=== PATIENT | male | born 1990 | race Caucasian/White ===

== ENCOUNTER 2023-01-25 20:24 | Emergency (ER) | payer BC, SELFPAY ==
[2023-01-25 20:27] VITALS: BP 124/73; PULSE 57; RESP 18; TEMP 36.5; O2SAT 100; BMI 30.6
--- NOTE | 2023-01-25 21:57 | CT_ITS ---
STUDY: CT BRAIN WITHOUT CONTRAST REASON FOR EXAM: Male, 32 years old. Syncope RADIATION DOSAGE (If Supplied By Facility): CTDIvol = ( 44.99 ) mGy, DLP = ( 812.98 ) mGycm TECHNIQUE: Transaxial CT imaging of the brain was performed without administration of intravenous contrast material. Individualized dose optimization techniques were used for this CT. COMPARISON: No relevant priors. FINDINGS: Normal soft tissue structures. Normal calvarium. Normal size ventricles and extra-axial spaces for the patient''s age. Normal white matter tracts of the cerebral hemispheres. Normal basal ganglia and thalami. Normal brainstem. Normal cerebellum. There is no intracranial hemorrhage. There are no findings of an acute ischemic infarction. Normal visualized paranasal sinuses. CT/Brain/Head without Contrast IMPRESSION: Normal unenhanced CT scan of the brain. Electronically Signed: Adelso Gamble MD at 22:39 EDT ,
[2023-01-25 22:03] VITALS: BP 125/85; PULSE 64; RESP 17; O2SAT 99
[2023-01-25 22:06] LABS: Absolute Lymphocyte Count 4.26 X10^3/uL (0.83-4.51); Absolute Neutrophil Count 2.4 X10^3/uL (2.0-7.7); Basophil# 0.04 X10^3/uL; Basophil% 0.5 % (0-1); Eosinophil# 0.17 X10^3/uL; Eosinophils% 2.2 % (0-5); Hematocrit 43.1 % (40-54); Hemoglobin 14.3 g/dL (13.0-16.5); Lymphocyte # 4.26 X10^3/ul (0.83-4.51); Lymphocyte % 56.3 % (19-41); Mean Corp Hgb Conc 33.2 g/dL (32-36); Mean Corpuscular Hgb 27.4 pg (27.0-32.0); Mean Corpuscular Volume 82.6 fL (80-94); Mean Platelet Vol. 9.8 fl (6.2-12.0); Monocyte% 9.2 % (0-10); NRBC Flagged by Analyzer 0 % (0-5); Neutrophil # 2.38 X10^3/uL (2.7-7.7); Neutrophil % 31.5 % (47-70); Platelet Count 300 K/mm3 (150-450); RBC Distribution Width CV 13.4 % (11.6-14.6); RBC Distribution Width SD 40.3 fl (35.1-43.9); Red Blood Count 5.22 M/mm3 (4.6-6.2); White Blood Count 7.6 K/mm3 (4.4-11.0)
[2023-01-25 22:23] VITALS: BP 126/74; BP 132/81; BP 138/79; PULSE 73; PULSE 78; PULSE 98
[2023-01-25 22:27] LABS: Anion Gap 6 (5-15); BUN 14 mg/dL (7-18); BUN/Creat Ratio 9.6 RATIO (10-20); Chloride 109 mmol/L (98-107); Creatinine, Serum 1.46 mg/dL (0.70-1.30); EST Glomerular Filtration Rate 60 mL/min (>60); Est Glom Filt Rate - Afr Amer 72 mL/min (>60); Estimated Creatinine Clearance 78.08 ml/min; Glucose 132 mg/dL (74-106); Potassium 3.9 mmol/L (3.5-5.1); Sodium Level 139 mmol/L (136-145); Troponin-I HS (w/2H Reflex) < 3 pg/mL (3.0-78.0)
--- NOTE | 2023-01-25 23:23 | EX.ED.DYSGE1 ---
HPI History of Present Illness Chief Complaint: Syncope Informant: patient and spouse/S.O. Onset/Context/Timing Onset: Today Context: Sudden Onset Timing: Intermittent and Lasts (5 to 15 seconds) Quality: Syncope Location: Generalized Worsened by: Nothing Relieved by: Nothing Narrative Narrative: Patient presents with a syncopal episode that occurred tonight. Patient actually had 3 syncopal episodes tonight while he was eating dinner. Patient states he was not eating anything unusual or anything that he has never had before. states that the patient had 1 episode where he could not lift his arms and his arms were weak and he started to fall forward. states that the second episode patient clenched his fist and started to lean backwards. states that the third episode he also clenched his fists and fell towards the right side. Patient was seated with all of these episodes. states the first 1 lasted a few seconds. states that the second and third episodes lasted 10 to 15 seconds. Patient felt sweaty prior to the first episode. Patient denies any chest pain or palpitations. Patient states that he had some syncopal episodes several years ago and was diagnosed with vasovagal syncope. Patient states that these episodes felt different. Patient states that he did start CBD Gummies recently [facility] Medical History (Updated 01/25/23 @ 23:[address] Ephraim Zamora DO) Vasovagal episode Home Medications NK 01/25/23 [History Last Taken Unknown] Allergy/AdvReac Type Severity Reaction Status Date / Time Penicillins Allergy Severe Hives Verified 01/25/23 20:30 Family History no significant family his Surgical History (Updated 01/25/23 @ 23:[address] Ephraim Zamora DO) Hx of tonsillectomy Social History Smoking Status: Never smoker ROS ROS ED Constitutional Constitutional ED: Reports sweats; Denies chills or fever(s) Eyes Eyes: Denies blurry vision or change in vision ENT ENT ED: Denies rhinorrhea or sore throat Cardiovascular Cardiovascular: Denies chest pain or palpitations Respiratory/Chest Respiratory/Chest: Denies cough or dyspnea Gastrointestinal Gastrointestinal: Denies nausea or vomiting Genitourinary Genitourinary ED: Denies dysuria or hematuria Musculoskeletal Musculoskeletal: Denies back pain or neck pain Integumentary Denies abscess or rash Neurologic Neurologic: Reports weakness; Denies headache(s) Allergic/Immunologic Allergic/Immunologic ED: Denies mouth swelling or urticaria EXAM Physical Exam Const Vital Signs: 01/25/23 20:27 01/25/23 20:32 01/25/23 22:03 Temperature 97.7 F L Temperature Source Temporal Pulse Rate 57 L 64 Pulse Rate [Lying] Pulse Rate [Sitting (for 1 minute prior to obtaining)] Pulse Rate [Standing (for 1 minute prior to obtaining)] Respiratory Rate 18 17 Respiratory Effort Normal Respiratory Pattern Normal Blood Pressure 124/73 H 125/85 H Blood Pressure [Lying] Blood Pressure [Sitting (for 1 minute prior to obtaining)] Blood Pressure [Standing (for 1 minute prior to obtaining)] Blood Pressure Mean 90 98 Blood Pressure Mean [Lying] Blood Pressure Mean [Sitting (for 1 minute prior to obtaining)] Blood Pressure Mean [Standing (for 1 minute prior to obtaining)] Pulse Ox 100 99 Oxygen Delivery Method Room Air Room Air 01/25/23 22:23 Temperature Temperature Source Pulse Rate Pulse Rate [Lying] 73 Pulse Rate [Sitting (for 1 minute prior to obtaining)] 78 Pulse Rate [Standing (for 1 minute prior to obtaining)] 98 Respiratory Rate Respiratory Effort Respiratory Pattern Blood Pressure Blood Pressure [Lying] 126/74 H Blood Pressure [Sitting (for 1 minute prior to obtaining)] 138/79 H Blood Pressure [Standing (for 1 minute prior to obtaining)] 132/81 H Blood Pressure Mean Blood Pressure Mean [Lying] 91 Blood Pressure Mean [Sitting (for 1 minute prior to obtaining)] 98 Blood Pressure Mean [Standing (for 1 minute prior to obtaining)] 98 Pulse Ox Oxygen Delivery Method Positive well nourished and well developed General Appearance ED: well developed HEENT Reports moist mucous membranes Neck supple and no JVD Resp normal respiratory effort and clear to auscultation bilaterally Cardio regular rate, regular rhythm and no murmurs GI normal to inspection, nondistended, normoactive bowel sounds and non-tender Palpation: soft Extremity normal to inspection General Extremety ED: Negative for edema or tenderness General Extremity: Negative for edema Neuro oriented x3, CN's II-XII intact bilaterally and no sensory deficits noted Sensorium / Orientation: alert Motor Exam: strength 5/5 throughout Psych mental status grossly normal Skin no rashes or lesions noted MDM MDM MDM Narrative Medical decision making narrative: Differential diagnosis includes cardiac dysrhythmia, cardiac ischemia, TIA, seizure, syncope, vasovagal episode, and anxiety. EKG will be obtained to assess for cardiac dysrhythmia and cardiac ischemia. CT scan of the brain will be obtained to assess for intracranial bleeding and mass. CBC will be obtained to assess for leukocytosis and anemia. Basic metabolic profile will be obtained to assess for electrolyte abnormality and renal function. High-sensitivity troponin will be obtained to assess for cardiac ischemia. 2-hour repeat high-sensitivity troponin will be obtained to assess for ongoing cardiac ischemia. Orthostatic vital signs will be obtained to assess for hypovolemia and dehydration. History & Record Review Discussion w/independent historian: Patient and Family Lab Data Attestation: I reviewed the patient's lab results. Lab results narrative: CBC was reviewed and was within normal limits. Basic metabolic profile was reviewed. Creatinine was slightly elevated at 1.46. Glucose was slightly elevated 132. High-sensitivity troponin was reviewed and was less than 3. Labs: Laboratory Results - last 24 hr 01/25/23 20:49 WBC 7.6 RBC 5.22 Hgb 14.3 Hct 43.1 MCV 82.6 MCH 27.4 MCHC 33.2 RDW Std Deviation 40.3 RDW Coeff of Sean 13.4 Plt Count 300 MPV 9.8 Immature Gran % (Auto) 0.300 Neut % (Auto) 31.5 L Lymph % (Auto) 56.3 H Bartholomew % (Auto) 9.2 Eos % (Auto) 2.2 Baso % (Auto) 0.5 Absolute Neuts (auto) 2.4 Absolute Lymphs (auto) 4.26 Nucleated RBC % 0 Sodium 139 Potassium 3.9 Chloride 109 H Carbon Dioxide 24.0 Anion Gap 6 BUN 14 Creatinine 1.46 H Estim Creat Clear Calc 78.08 Est GFR (MDRD) Af Amer 72 Est GFR (MDRD) Non-Af 60 BUN/Creatinine Ratio 9.6 L Glucose 132 H Calcium 9.0 Troponin I High Sens < 3 L Radiography Diagnostic Testing: Clinical Impression(s) from Imaging Studies Brain CT 01/25/23 21:57 IMPRESSION: Normal unenhanced CT scan of the brain. Electronically Signed: Adelso Gamble MD at 22:39 EDT , CT scan of the brain was obtained. There is no acute intracranial abnormality. This was interpreted by the radiologist and was also independently reviewed by myself. EKG Initial EKG: Attestation: I personally reviewed and interpreted this EKG as follows: Interpretation: Sinus Rhythm (62) and No Acute Injury Pattern Comments: EKG was obtained. On my independent interpretation, it showed a normal sinus rhythm with a rate of 62. OR interval, QRS interval, and QTc intervals were all normal. [place] was normal. There are no acute ST or T wave changes. Prior EKG tracings: not available for review Prior: No Prior Treatment and Re-Evaluation :: Orthostatic vital signs were obtained. Patient's heart rate did increase by 20 from sitting to standing. Because of this, patient was given IV fluids. Patient was advised of his findings. A 2-hour repeat troponin is ordered and is pending. Patient was advised that if this is normal he will be discharged home and he will follow-up with his primary care physician for further evaluation of his syncope. Patient was directed to stop using the CBD Gummies in case this has been contributing to the syncope episodes tonight. Patient understood and was agreeable with the plan. All questions were answered. The was turned over to the evening physician pending delta troponin result. Discharge Plan Triage Chief Complaint: Syncope ED Provider: Ephraim Zamora Dx/Rx/DC Orders Clinical Impression: Syncope and collapse Instructions: ED Fainting, Uncertain Cause Prescriptions: No Action NK Primary Care Provider: Care Physician,No Primary Referrals: Humza Lacy MD [Med Staff - [employer]] - 5-7 Days Care Physician,No Primary [Primary Care Provider] -
[2023-01-25] MEDS: 0.9% Normal Saline 1,000 ML 1000 ML IV (23:47)
[2023-01-26 00:03] LABS: Reflex Troponin-HS? (from REC) Y
[2023-01-26 00:31] LABS: Troponin-I HS 4 pg/mL (3.0-78.0)
[2023-01-26 01:01] VITALS: BP 119/73; PULSE 69; RESP 23; O2SAT 99
== END 2023-01-26 01:07 | disposition home or self-care (01) ==
LOC: ED 22:09
PROVIDERS: Emergency Provider Emergency Medicine; Visit Provider Emergency Medicine
DX: R55 Syncope and collapse (principal)
CPT/HCPCS: 70450; 80048; 84484; 85025; 93005; 96360; 99285; J7030; A4216

== ENCOUNTER 2025-01-01 14:56 | Observation (INO) | payer BC, SELFPAY ==
[2025-01-01 14:56] VITALS: BP 143/85; PULSE 64; RESP 14; TEMP 36.7; O2SAT 98
--- NOTE | 2025-01-01 15:52 | ED.VIS.GI ---
HPI HPI - GI History of Present Illness Chief Complaint: Abd Pain Abdominal Pain/Flank Pain Onset: Yesterday Context: Sudden Onset Timing: Continuous Quality: Aching and - (Throbbing) Location: RUQ Worsened by: Food Relieved by: - (Aspirin) Nausea/Vomiting/Emesis GI Symptom: Positive for Nausea and Vomiting Onset: Yesterday Quality: Positive for Nonbilious; Negative for Blood streaks, Coffee ground or Hematemesis Diarrhea/Melena/Hematochezia GI Symptom: Negative for Diarrhea, Melena or Hematochezia Associated Symptoms Associated Symptoms: Negative for Dysuria, Frequency or Hematuria Narrative Narrative: Patient presents with right upper quadrant abdominal pain that began last night. Patient states it began approximately 2 hours after eating dinner last night. Patient describes it as aching and throbbing. Patient states it radiates around to his back. Patient states he has been taking aspirin which has been helping. Patient admits to some nausea and vomiting. Patient denies any hematemesis or coffee-ground emesis. Patient denies any diarrhea, melena, or hematochezia. Patient denies any dysuria, frequency, or hematuria. [facility] Medical History Vasovagal episode Home Medications ?Medication ?Instructions ?Recorded ?Last Taken ?Type NK 01/25/23 Unknown History Allergy/AdvReac Type Severity Reaction Status Date / Time Penicillins Allergy Severe Hives Verified 01/01/25 14:57 Surgical History Hx of tonsillectomy Social History Smoking Status: Never smoker ROS ROS ED Constitutional Constitutional ED: Denies chills or fever(s) Eyes Eyes: Denies blurry vision or change in vision ENT ENT ED: Denies rhinorrhea or sore throat Cardiovascular Cardiovascular: Denies chest pain or palpitations Respiratory/Chest Respiratory/Chest: Denies cough or dyspnea Gastrointestinal Gastrointestinal: Reports abdominal pain, nausea and vomiting; Denies diarrhea Genitourinary Genitourinary ED: Denies dysuria or hematuria Musculoskeletal Musculoskeletal: Reports back pain; Denies neck pain Integumentary Denies abscess or rash Neurologic Neurologic: Denies headache(s) or weakness Allergic/Immunologic Allergic/Immunologic ED: Denies mouth swelling or urticaria EXAM Physical Exam Const Vital Signs: 01/01/25 14:56 01/01/25 16:56 01/01/25 18:00 Temperature 98.1 F 98.4 F Temperature Source Temporal Pulse Rate 64 68 71 Respiratory Rate 14 18 18 Blood Pressure 143/85 H 136/82 H 134/82 H Blood Pressure Mean 104 100 99 Pulse Ox 98 100 99 Oxygen Delivery Method Room Air Room Air Positive well nourished and well developed General Appearance ED: well developed and NAD HEENT Reports moist mucous membranes Neck supple and no JVD Resp normal respiratory effort and clear to auscultation bilaterally Cardio regular rate and regular rhythm GI non-distended Palpation: soft and tender RUQ and Curtis's sign; Negative for guarding or rebound tenderness present Neuro CN's II-XII intact bilaterally, moves all extremities and no sensory deficits noted Sensorium / Orientation: alert Motor Exam: strength 5/5 throughout Psych mental status grossly normal MDM MDM MDM Narrative Medical decision making narrative: Differential diagnosis includes cholecystitis, cholelithiasis, pancreatitis, gastritis, peptic ulcer disease, duodenal ulcer, urinary tract infection, and ureteral calculus. CBC will be obtained to assess for leukocytosis and anemia. Comprehensive metabolic profile will be obtained to assess for electrolyte abnormality and renal function. Lipase will be obtained to assess for pancreatitis. Urinalysis will be obtained to assess for urinary tract infection and hematuria. Right upper quadrant ultrasound will be obtained to assess for cholecystitis and cholelithiasis. History & Record Review Discussion w/independent historian: Patient Additional record(s) reviewed:: Prior labs Lab Data Attestation: I reviewed the patient's lab results. Lab results narrative: CBC was reviewed. There is a mild leukocytosis of 12.8. The remainder is within normal limits. Comprehensive metabolic profile was reviewed. Glucose was 100. The remainder is within normal limits. Lipase was reviewed and was normal at 24. Urinalysis was reviewed. There is no evidence of urinary tract infection or hematuria. Labs: Laboratory Results - last 24 hr 01/01/25 01/01/25 16:07 16:15 WBC 12.8 H RBC 5.30 Hgb 14.9 Hct 41.7 MCV 78.7 L MCH 28.1 MCHC 35.7 RDW Std Deviation 37.1 RDW Coeff of Sean 13.0 Plt Count 280 MPV 9.5 Immature Gran % (Auto) 0.200 Neut % (Auto) 76.6 H Lymph % (Auto) 15.7 L [place] % (Auto) 7.0 Eos % (Auto) 0.2 Baso % (Auto) 0.3 Absolute Neuts (auto) 9.8 H Absolute Lymphs (auto) 2.01 Nucleated RBC % 0 Sodium 136 Potassium 3.7 Chloride 101 Carbon Dioxide 22.6 Anion Gap 13 BUN 12 Creatinine 1.14 Estim Creat Clear Calc 110.23 Est GFR (MDRD) Non-Af 87 BUN/Creatinine Ratio 10.9 Glucose 100 H Calcium 9.9 Total Bilirubin 1.16 AST 20 ALT 27 Alkaline Phosphatase 69 Total Protein 8.0 Albumin 4.7 Globulin 3.3 Albumin/Globulin Ratio 1.4 Lipase 24 Urine Color Straw Urine Clarity Clear Urine pH 7.0 Ur Specific [place] 1.005 Urine Protein Negative Urine Glucose (UA) Normal Urine Ketones 5 H Urine Occult Blood Negative Urine Nitrite Negative Urine Bilirubin Negative Urine Urobilinogen Normal Ur Leukocyte Esterase Negative Urine RBC 0 SEEN Urine WBC 0 SEEN Ur Squamous Epith Cells 0 SEEN Urine Bacteria 0 SEEN Urine Mucus 0 SEEN Radiography Diagnostic Testing: Clinical Impression(s) from Imaging Studies Gallbladder Ultrasound 01/01/25 15:56 IMPRESSION: 1. Cholelithiasis and biliary sludge, with equivocal findings for acute cholecystitis. Consider Surgical consultation and nuclear medicine scan if there is heightened clinical concern. 2. Mild hepatomegaly. Reading Location: [facility] Right upper quadrant ultrasound was obtained. There is cholelithiasis and biliary sludge. There is no gallbladder wall thickening. There is possible trace pericholecystic fluid. There is negative sonographic Curtis sign. This was interpreted by the radiologist and was also independently reviewed by myself. Management Discussion w/another healthcare provider: Roving Technician Treatment and Re-Evaluation :: Patient was given morphine and Zofran. Patient was given IV fluids. Case was discussed with Dr. Guajardo from general surgery. He will admit the patient to his service. Patient understood and was agreeable with the plan. All questions were answered. Discharge Plan Triage Chief Complaint: Abd Pain ED Provider: Ephraim Zamora Dx/Rx/DC Orders Clinical Impression: Acute cholecystitis, Leukocytosis, Abdominal pain, acute, right upper quadrant Primary Care Provider: Care Physician,No Primary Disposition Disposition: Acute Care Hospital [facility]
--- NOTE | 2025-01-01 15:56 | US_ITS ---
PROCEDURE: GALLBLADDER 01/01/2025 REASON FOR EXAM: PAIN COMPARISON: None FINDINGS: Liver: Mildly enlarged measuring 19.1 cm longitudinally. Isoechoic to the right kidney. Gallbladder: There are echogenic shadowing stones and layering sludge, with normal wall thickness of 2 mm. There are tiny avascular anechoic spaces within a hyperechoic background adjacent to the gallbladder, possibly trace pericholecystic fluid or adenomyomatosis. Sonographic Curtis's sign is negative per technologist report. Common bile duct: Normal measuring 3 mm. Pancreas: Visualized portions are sonographically unremarkable. Other: Visualized portions of the right kidney are unremarkable, with the right kidney measuring 10.7 x 4.8 x 4.9 cm and with cortex measuring 1.1 cm. No right upper quadrant ascites. US/Gallbladder IMPRESSION: 1. Cholelithiasis and biliary sludge, with equivocal findings for acute cholec ystitis. Consider Surgical consultation and nuclear medicine scan if there is heightened clinical concern. 2. Mild hepatomegaly. Reading Location: [id number]
[2025-01-01 16:12] VITALS: BMI 28.4
[2025-01-01] MEDS: 0.9% Normal Saline (1000mL) 1,000 ML 999 ML IV (16:14)
[2025-01-01 16:27] LABS: Bacteria 0 SEEN /hpf (None Seen); Mucous, Urine 0 SEEN /hpf (<or=2+); Red Blood Cells-Urine 0 SEEN /hpf (0-5); Squamous Epithelial Cells - UA 0 SEEN /hpf (0-5); White Blood Cells 0 SEEN /hpf (0-5)
[2025-01-01 16:33] LABS: Absolute Lymphocyte Count 2.01 X10^3/uL (0.83-4.51); Absolute Neutrophil Count 9.8 X10^3/uL (2.0-7.7); Basophil# 0.04 X10^3/uL; Basophil% 0.3 % (0-1); Eosinophil# 0.03 X10^3/uL; Eosinophils% 0.2 % (0-5); Hematocrit 41.7 % (40-54); Hemoglobin 14.9 g/dL (13.0-16.5); Lymphocyte # 2.01 X10^3/ul (0.83-4.51); Lymphocyte % 15.7 % (19-41); Mean Corp Hgb Conc 35.7 g/dL (32-36); Mean Corpuscular Hgb 28.1 pg (27.0-32.0); Mean Corpuscular Volume 78.7 fL (80-94); Mean Platelet Vol. 9.5 fl (6.2-12.0); Monocyte# 0.89 X10^3/uL; NRBC Flagged by Analyzer 0 % (0-5); Neutrophil # 9.78 X10^3/uL (2.7-7.7); Neutrophil % 76.6 % (47-70); Platelet Count 280 K/mm3 (150-450); RBC Distribution Width SD 37.1 fl (35.1-43.9); White Blood Count 12.8 K/mm3 (4.4-11.0)
[2025-01-01 16:39] LABS: Glucose, Dipstick Normal (Normal); Ketone-Dipstick 5 mg/dl (Negative); Leukocyte Esterase-Dipstick Negative /ul (Negative); Nitrite-Dipstick Negative (Negative); Occult Blood-Urine Negative /ul (Negative); Protein-Dipstick Negative (Negative); Specific Gravity, Urine 1.005 (1.002-1.030); Urine Bilirubin Dipstick Negative (Negative); Urine Urobilinogen Normal (Normal)
[2025-01-01 16:48] LABS: ALB/GLOB Ratio 1.4 RATIO (0.9-2.4); AST(SGOT) 20 U/L (<=37); Alanine Aminotransfer ALT/SGPT 27 U/L (<=46); Albumin, Serum 4.7 g/dL (3.5-5.0); Alkaline Phosphatase 69 U/L (40-129); Anion Gap 13 (5-15); BUN 12 mg/dL (4-19); BUN/Creat Ratio 10.9 RATIO (10-20); Calcium,Total 9.9 mg/dL (7.6-11.0); Carbon Dioxide 22.6 mmol/L (21.0-32.0); Chloride 101 mmol/L (98-108); Creatinine, Serum 1.14 mg/dL (0.70-1.20); EST Glomerular Filtration Rate 87 (>60); Estimated Creatinine Clearance 110.23 ml/min (50-250); Globulin 3.3 g/dL (2.2-4.2); Glucose 100 mg/dL (70-99); Lipase 24 U/L (13-75); Potassium 3.7 mmol/L (3.3-5.1); Sodium Level 136 mmol/L (133-145); Total Bilirubin 1.16 mg/dL (0.00-1.30)
[2025-01-01 16:50] LABS: Color, Urine Straw (Yellow); Urine Clarity Clear (Clear)
[2025-01-01 16:56] VITALS: BP 136/82; PULSE 68; RESP 18; O2SAT 100
[2025-01-01 18:00] VITALS: BP 134/82; PULSE 71; RESP 18; TEMP 36.9; O2SAT 99
--- NOTE | 2025-01-01 18:07 | PCM.HP.STD ---
HPI - General HPI Narrative VICKI MATTHEWS, is a 34 M who presents with right upper quadrant pain that started last night. The patient denies nausea or vomiting. He denies fevers or chills. He says the pain is in his right upper quadrant. Patient says the pain radiates to the back. [facility] Medical History Vasovagal episode Home Medications ?Medication ?Instructions ?Recorded ?Last Taken ?Type NK 01/25/23 Unknown History Allergy/AdvReac Type Severity Reaction Status Date / Time Penicillins Allergy Severe Hives Verified 01/01/25 14:57 Surgical History Hx of tonsillectomy Social History Smoking Status: Never smoker ROS Constitutional Constitutional: Denies anorexia, chills, fatigue or fever(s) Eyes Eyes: Denies blurry vision ENT HEENT: Denies abnormal hearing Cardiovascular Cardiovascular: Denies chest pain Respiratory/Chest Respiratory/Chest: Denies cough or dyspnea Gastrointestinal Gastrointestinal: Reports abdominal pain; Denies diarrhea, nausea or vomiting Genitourinary Genitourinary: Denies difficulty urinating Musculoskeletal Musculoskeletal: Denies abnormal gait Integumentary Integumentary: Denies jaundice or new lesions Neurologic Neurologic: Denies abnormal gait Psychiatric Psychiatric: Denies anxiety Vital Signs Vital Signs Vital Signs: 01/01/25 14:56 01/01/25 16:56 Temperature 98.1 F Temperature Source Temporal Pulse Rate 64 68 Respiratory Rate 14 18 Blood Pressure 143/85 H 136/82 H Blood Pressure Mean 104 100 Pulse Ox 98 100 Oxygen Delivery Method Room Air Room Air Weight Weight: 209 lb 7.026 oz Body Mass Index (BMI) 28.4 Physical Exam Const oriented x3 and no apparent distress Resp normal respiratory effort GI soft to palpation Palpation: tender RUQ Extremity normal to inspection Results Lab / Micro Data 01/01/25 16:15 01/01/25 16:15 Labs: Laboratory Results - last 24 hr 01/01/25 16:07: Urine Color Straw, Urine Clarity Clear, Urine pH 7.0, Ur Specific [place] 1.005, Urine Protein Negative, Urine Glucose (UA) Normal, Urine Ketones 5 H, Urine Occult Blood Negative, Urine Nitrite Negative, Urine Bilirubin Negative, Urine Urobilinogen Normal, Ur Leukocyte Esterase Negative, Urine RBC 0 SEEN, Urine WBC 0 SEEN, Ur Squamous Epith Cells 0 SEEN, Urine Bacteria 0 SEEN, Urine Mucus 0 SEEN 01/01/25 16:15: WBC 12.8 H, RBC 5.30, Hgb 14.9, Hct 41.7, MCV 78.7 L, MCH 28.1, MCHC 35.7, RDW Std Deviation 37.1, RDW Coeff of Sean 13.0, Plt Count 280, MPV 9.5, Immature Gran % (Auto) 0.200, Neut % (Auto) 76.6 H, Lymph % (Auto) 15.7 L, [place] % (Auto) 7.0, Eos % (Auto) 0.2, Baso % (Auto) 0.3, Absolute Neuts (auto) 9.8 H, Absolute Lymphs (auto) 2.01, Nucleated RBC % 0, Sodium 136, Potassium 3.7, Chloride 101, Carbon Dioxide 22.6, Anion Gap 13, BUN 12, Creatinine 1.14, Estim Creat Clear Calc 110.23, Est GFR (MDRD) Non-Af 87, BUN/Creatinine Ratio 10.9, Glucose 100 H, Calcium 9.9, Total Bilirubin 1.16, AST 20, ALT 27, Alkaline Phosphatase 69, Total Protein 8.0, Albumin 4.7, Globulin 3.3, Albumin/Globulin Ratio 1.4, Lipase 24 Imaging Radiology Impression Gallbladder Ultrasound 01/01/25 15:56 IMPRESSION: 1. Cholelithiasis and biliary sludge, with equivocal findings for acute cholecystitis. Consider Surgical consultation and nuclear medicine scan if there is heightened clinical concern. 2. Mild hepatomegaly. Reading Location: [id number] Assessment & Plan Assessment/Plan (1) Acute cholecystitis: PLAN: The patient has sludge and stones in his gallbladder with elevated white count. This is consistent with acute cholecystitis. Plan to admit him on antibiotics and take him for laparoscopic cholecystectomy tomorrow. I discussed the procedure in detail with the patient. I discussed the risks, benefits, and alternatives of the procedure. I discussed the risks including but not limited to bleeding, infection, injury to surrounding organs such as the liver, bile duct, bowels. I did discuss the possibility of having to convert to an open procedure as well as the possibility that if any injuries occurred this may necessitate further surgery at a tertiary care center. Shiraz Guajardo MD Pager: [facility] [address] [place] [address] [address] [place] [address] Office:
[2025-01-01 19:59] VITALS: BMI 29.2
[2025-01-01] MEDS: Acetaminophen 325 MG Tablet 650 MG PO (20:37)
[2025-01-01] MEDS: 0.9% Normal Saline (1000mL) 1,000 ML 60 ML IV (20:37)
[2025-01-01] MEDS: Ciprofloxacin 400 MG/200 ML BAG 200 MG IV (20:37)
[2025-01-01 20:43] VITALS: BP 135/84; PULSE 84; RESP 16; TEMP 36.9; O2SAT 100
--- OUTSIDE RECORDS SUMMARY | 2025-01-01 23:11 | XMS RPT_ITS | CCD ---
Author Organization [facility] Inform ion Partnership [facility] Care Team Providers Care Intake Assessor Name Role Phone Ephraim Zamora Attending Unavailable Care Physician, No Primary Primary Care Unava ilable Unavailable Primary Care Provider UnavailGABO Rodriguez Attending Unavailable RUI ZAMBRANO Referring Unavailable DAYAN BECERRA Attending Unavailable RUI ZAMBRANO Referring Unavailable STARR MURILLO [facility], No Primary Primary Care Provider Unavailable Dr. Ephraim Zamora DO Referring Provider Dr. Ephraim Zamora DO Emergency Provider [phone] Bennett ROSS, Dr. Mullins Admit Provider [phone] Dr. Shiraz Guajardo MD Attending Provider Allergies Allergy Classification Reported Allergen(s) Allergy Type Date of Onset Reaction(s) Facility (3 sources) Penicillins; Translations: [PENICILLINS] Drug allergy (disorder) 11-28-2013 [facility] Repository (8 sources) Penicillins Drug Allergy 11-28-2013 Rash [facility] Work Phone: (1 source) Penicillins Allergy to substance 01-01-2025 [facility] Medications Current Medications Medication Drug Class(es) Dates Sig (Normalized) Sig (Original) ciprofloxacin 500 mg oral tablet (4 sources) Quinolone Antimicrobial Start: 02-07-2024 take 1 tablet by mouth every hour ciprofloxacin HCl (CIPRO) 500 mg tablet Indications: Vasectomy evaluation 1 PO Q- 24, 12 AND 1 HOUR PRIOR TO PROCEDURE 3 tablet 02/07/2024 Active MULTI-VITAMIN ORAL (7 sources) take 1 tablet by mouth once daily MULTI-VITAMIN ORAL Take 1 tablet by mouth once daily. Active take 1 tablet by mouth once linda y MULTI-VITAMIN ORAL Take 1 tablet by mouth once daily. 0 Active triazolam 0.25 mg oral tablet (3 sources) Benzodiazepine Start: 02-07-2024 End: 03-13-2024 triazolam (HALCION) 0.25 mg tablet Indications: Vasectomy evaluation 1 PO Q-1 hour prior to procedure 2 tablet 0 02/07/2024 03/13/2024 Active Completed/Discontinued Medications Medication Drug Class(es) Dates Sig (Normalized) Sig (Original) Lidocaine (2 sources) Antiarrhythmic, Amide Local Anesthetic Start: 02-10-2024 End: 02-10-2024 lidocaine 20 mg/mL (2 %) 200 mg injection (XYLOCAINE) Problems Active Problems Problem Classification Problem Date Documented Da te Episodic/Chronic Abdominal pain (2 sources) Acute abdominal pain; Translations: [Right upper quadrant pain] 01-01-2025 Episodic Biliary tract disease (2 sources) Acute cholecystitis; Translations: [Acute cholecystitis] 01-01-2025 Episodic Contraceptive and procreative management (7 sources) Patient encounter status; Translations: [Encounter for other general counseling and advice on contraception] Onset: 02-10-2024 01-11-2024 Episodic Diseases of white blood cells (2 sources) Leukocytosis; Translations: [Elevated white blood cell count, unspecified] 01-01-2025 Chronic Other non-traumatic joint disorders (1 source) Acute ankle pain; Translations: [Pain in right ankle and joints of right foot] 07-19-2023 Episodic Syncope (1 source) Syncope and collapse; Translations: [Syncope and collapse] 02-03-2023 Episodic Past or Other Problems Problem Classification Problem Date Documented Da te Episodic/Chronic Other non-traumatic joint disorders (1 source) Pain in right ankle and joints of right foot; Translations: [Acute right ankle pain] Onset: 08-09-2023 Episodic Results Test Name Value Interpretation Reference Range Facility Absolute lymphocyte countOrd ered By: Ephraim Zamora on 01-01-2025 Lymphocytes Auto (Unsp spec) [#/Vol] 2.01 10*3/uL 0.83-4.51 [facility] Absolute neutrophil countOrd ered By: Ephraim Zamora on 01-01-2025 Neutrophils (Bld) [#/Vol] 9.8 10*3/uL High 2.0-7.7 [facility] Anion gap in Serum or Plasma Ordered By: Ephraim Zamora on 01-01-2025 Anion gap [Moles/Vol] 13 mmol/L 5-15 [facility] Automated lymphocyte count a s percentage of total leukocytesOrdered By: Ephraim Zamora on 01-01-2025 Lymphocytes/100 WBC Auto (Unsp spec) 15.7 % Low 19-41 [facility] BUN/creatinine ratioOrdered By: Ephraim Zamora on 01-01-2025 Urea nitrogen/Creatinine [Mass ratio] 10.9 mg/mg 10-20 [facility] Basophil percentageOrdered B y: Ephraim Zamora on 01-01-2025 Basophils/100 WBC (Bld) 0.3 % 0-1 [facility] Bilirubin Test strip Ql (U)O rdered By: Ephraim Zamora on 01-01-2025 Bilirubin Ql (U) Negative Negative [facility] Bilirubin, totalOrdered By: Ephraim Zamora on 01-01-2025 Bilirubin [Mass/Vol] 1.16 mg/dL 0.00-1.30 [facility] Carbon dioxide, total [Moles /volume] in Central venous bloodOrdered By: Ephraim Zamora on 01-01-2025 CO2 [Moles/Vol] 22.6 mmol/L 21.0-32.0 [facility] Chloride assayOrdered By: Hermilo Zamora on 01-01-2025 Chloride [Moles/Vol] 101 mmol/L 98-108 [facility] Eosinophil percentageOrdered By: Ephraim Zamora on 01-01-2025 Eosinophils/100 WBC (Bld) 0.2 % 0-5 [facility] Erythrocyte distribution wid th ratioOrdered By: Ephraim Zamora on 01-01-2025 Erythrocyte distribution width (RBC) [Ratio] 13.0 % 11.6-14.6 [facility] Erythrocyte distribution wid th standard deviationOrdered By: Ephraim Zamora on 01-01-2025 Erythrocyte distribution width (RBC) [Ratio] 37.1 fl 35.1-43.9 [facility] Glomerular filtration rate ( GFR) estimation/1.73 sq m using serum, plasma, or whole bOrdered By: Ephraim Zamora on 01-01-2025 GFR/1.73 sq M.predicted among non-blacks MDRD (S/P/Bld) [Vol rate/Area] 87 mL/min/{1.73_m2} >60 [facility] Comment on above: mL/min/1.73m2 CKD-EP I Creatinine Equation (2020) Hematocrit Auto (Bld) [Volum e fraction]Ordered By: Ephraim Zamora on 01-01-2025 Hematocrit (Bld) [Volume fraction] 41.7 % 40-54 [facility] Hemoglobin measurementOrdere d By: Ephraim Zamora on 01-01-2025 Hemoglobin (Bld) [Mass/Vol] 14.9 g/dL 13.0-16.5 [facility] Immature granulocytes/100 WB C Auto (Bld)Ordered By: Ephraim Zamora on 01-01-2025 Immature granulocytes/100 WBC (Bld) 0.200 % 0.0-0.9 [facility] Comment on above: IG% - Immature Granu locytes (promyelocytes, myelocytes and metamyelocytes) > 1% indicates that a LEFT SHIFT is Present. Ketones Test strip Ql (U)Ord ered By: Ephraim Zamora on 01-01-2025 Ketones Ql (U) 5 mg/dl High Negative [facility] Laboratory - Chemistry and C hemistry - challengeOrdered By: Ephraim Zamora on 01-01-2025 AST [Catalytic activity/Vol] 20 U/L <38 [facility] Lipase measurementOrdered By : Ephraim Zamora on 01-01-2025 Lipase [Catalytic activity/Vol] 24 U/L 13-75 [facility] Comment on above: Please note:LIPASE r evised reference range effective 22. New Lipase methodology. Expected to produce lower values than the previous assay method. NEW Reference Range: 13 - 75 U/L MCV (mean corpuscular volume ) determinationOrdered By: Ephraim Zamora on 01-01-2025 MCV (RBC) [Entitic vol] 78.7 fL Low 80-94 [facility] Mean corpuscular hemoglobin (MCH) determinationOrdered By: Ephraim Zamora on 01-01-2025 MCH (RBC) [Entitic mass] 28.1 pg 27.0-32.0 [facility] Mean corpuscular hemoglobin concentration (MCHC) determinationOrdered By: Ephraim Zamora on 01-01-2025 MCHC (RBC) [Mass/Vol] 35.7 g/dL 32-36 [facility] Mean platelet volume determi nationOrdered By: Ephraim Zamora on 01-01-2025 Platelet mean volume (Bld) [Entitic vol] 9.5 fL 6.2-12.0 [facility] Microscopic analysis of urin e for red blood cells (RBC)Ordered By: Ephraim Zamora on 01-01-2025 Microscopic analysis of urine for red blood cells (RBC) 0 SEEN /hpf 0-5 [facility] Monocyte percentageOrdered B y: Ephraim Zamora on 01-01-2025 Monocytes/100 WBC (Bld) 7.0 % 0-10 [facility] Mucus LM Ql (Urine sed)Order ed By: Ephraim Zamora on 01-01-2025 Mucus Ql (Urine sed) 0 SEEN /hpf [facility] Neutrophil percentageOrdered By: Ephraim Zamora on 01-01-2025 Neutrophils/100 WBC (Bld) 76.6 % High 47-70 [facility] Nitrite Test strip Ql (U)Ord ered By: Ephraim Zamora on 01-01-2025 Nitrite Ql (U) Negative Negative [facility] Nucleated red blood cell per centageOrdered By: Ephraim Zamora on 01-01-2025 Nucleated RBC/100 WBC (Bld) [Ratio] 0 % 0-5 [facility] Platelet countOrdered By: Hermilo Zamora on 01-01-2025 Platelets (Bld) [#/Vol] 280 10*3/uL 150-450 [facility] Potassium measurement (mass/ volume)Ordered By: Ephraim Zamora on 01-01-2025 Potassium (Unsp spec) [Mass/Vol] 3.7 mmol/L 3.3-5.1 [facility] Protein Test strip Ql (U)Ord ered By: Ephraim Zamora on 01-01-2025 Protein Ql (U) Negative Negative [facility] RBC Auto (Bld) [#/Vol]Ordere d By: Ephraim Zamora on 01-01-2025 RBC (Bld) [#/Vol] 5.30 10*6/uL 4.6-6.2 [facility] Serum creatinine measurement (mass/volume)Ordered By: Ephraim Zamora on 01-01-2025 Creatinine [Mass/Vol] 1.14 mg/dL 0.70-1.20 [facility] Serum globulin measurementOr dered By: Ephraim Zamora on 01-01-2025 Globulin (S) [Mass/Vol] 3.3 g/dL 2.2-4.2 [facility] Serum glucose measurement (m ass/volume)Ordered By: Ephraim Zamora on 01-01-2025 Glucose [Mass/Vol] 100 mg/dL High 70-99 [facility] Serum or plasma alanine moseley otransferase (ALT) measurementOrdered By: Ephraim Zamora on 01-01-2025 ALT [Catalytic activity/Vol] 27 U/L <47 [facility] Serum or plasma albumin pepe urement (mass/volume)Ordered By: Ephraim Zamora on 01-01-2025 Albumin [Mass/Vol] 4.7 g/dL 3.5-5.0 [facility] Serum or plasma albumin/glob ulin mass ratioOrdered By: Ephraim Zamora on 01-01-2025 Albumin/Globulin [Mass ratio] 1.4 {ratio} 0.9-2.4 [facility] Serum or plasma alkaline christiano sphatase measurementOrdered By: Ephraim Zamora on 01-01-2025 ALP [Catalytic activity/Vol] 69 U/L 40-129 [facility] Serum or plasma calcium pepe urement (mass/volume)Ordered By: Ephraim Zamora on 01-01-2025 Calcium [Mass/Vol] 9.9 mg/dL 7.6-11.0 [facility] Serum or plasma urea nitroge n measurement (mass/volume)Ordered By: Ephraim Zamora on 01-01-2025 Urea nitrogen [Mass/Vol] 12 mg/dL 4-19 [facility] Sodium levelOrdered By: Ephraim Zamora on 01-01-2025 Sodium [Moles/Vol] 136 mmol/L 133-145 [facility] Squamous epithelial cells de tection in urine sediment by light microscopyOrdered By: Ephraim Zamora on 01-01-2025 Epithelial cells.squamous LM Ql (Urine sed) 0 SEEN /hpf 0-5 [facility] Total proteinOrdered By: Kallie Zamora on 01-01-2025 Protein [Mass/Vol] 8.0 g/dL 5.9-8.4 [facility] Urine clarityOrdered By: Kallie Zamora on 01-01-2025 Clarity (U) Clear Clear [facility] Urine color determinationOrd ered By: Ephraim Zamora on 01-01-2025 Color (U) Straw Yellow [facility] Urine glucose detectionOrder ed By: Ephraim Zamora on 01-01-2025 Glucose Ql (U) Normal mg/dl Normal [facility] Urine leukocyte esterase det ection by dipstickOrdered By: Ephraim Zamora on 01-01-2025 Leukocyte esterase Test strip Ql (U) Negative Negative [facility] Urine pHOrdered By: Ephraim spence on 01-01-2025 pH (U) 7.0 [pH] 5.0 - 8.0 [facility] Urine sediment bacteria coun t by microscopy (number/high power field)Ordered By: Ephraim Zamora on 01-01-2025 Bacteria LM.HPF (Urine sed) [#/Area] 0 /[HPF] None Seen [facility] Urine specific gravity measu rementOrdered By: Ephraim Zamora on 01-01-2025 Specific gravity (U) [Rel density] 1.005 1.002-1.030 [facility] Urine urobilinogen measureme ntOrdered By: Ephraim Zamora on 01-01-2025 Urobilinogen Ql (U) Normal mg/dl Normal [facility] White blood cell (WBC) count Ordered By: Ephraim Zamora on 01-01-2025 WBC (Bld) [#/Vol] 12.8 10*3/uL High 4.4-11.0 [facility] White blood cell countOrdere d By: Ephraim Zamora on 01-01-2025 White blood cell count 0 SEEN /hpf 0-5 [facility] 05-12-2024 [facility] Telephone (UROALL) ---- VICKI MATTHEWS ([id number]) 1990 M Date Time Provider Department 05/12/24 STARR MURILLO During your visit today, we recorded the following information about you: Cori Thomas LPN 05/12/2024 12:55 PM Signed Spoke with patient and advised him that his sperm sample was good nothing was seen. Cori Thomas LPN Allergies As of Date: 05/12/2024 Noted Allergy Reaction PENICILLINS 11/28/2013 2 - Rash Date Reviewed: 02/10/2024 Reviewed by: Familia Saucedo MA - Fully Assessed Reason for Visit: Results [95] Cmt: Sperm sample results Prescriptions as of 05/12/2024 - ciprofloxacin HCl (CIPRO) 500 mg tablet 1 PO Q- 24, 12 AND 1 HOUR PRIOR TO PROCEDURE - MULTI-VITAMIN ORAL Take 1 tablet by mouth once daily. Problem List As Of Date: 05/12/2024 (None) Encounter Status:Closed by CORI THOMAS on 05/12/24 [facility] CNOVon 02-10-2024 CNOV Office Visit (UROLAG) ---- VICKI MATTHEWS ([id number]) 1990 M Date Time Provider Department 02/10/24 1:30 PM STARR MURILLO During your visit today, we recorded the following information about you: Weight Height 87.1 kg 1.803 m Starr Murillo MD 02/10/2024 2:07 PM Signed 02/10/2024 UNIVERSAL PROTOCOL / SAFETY CHECKLIST Procedure to be Performed: vas Sign In: A Moment of CARE was completed. Personnel directly involved with the procedure wore the appropriate PPE (Personal Protective Equipment). Patient/Surrogate Stated/Verified: Time Out Communication: Intended patient and procedure match the source documents. Consent documented and matches the intended procedure. Sign Out: SIGN OUT (optional for EMERGENT procedures): No specimen collected. Starr Murillo MD HPI: 33 year old male reports for vasectomy. He again confirms he desires permanent sterilization and has no desire to father children in the future. Procedure: Vasectomy Anatomic Site: Vas Deferens Approach: Percutaneous Device: None Qualifier: None PMHx/PSHx: see above, otherwise unchanged Rx: No scheduled NSAIDs or blood thinner for past 5 days. ROS: No new or inguinal complaints Labs: None Imaging: None PE: General: Well masculinized, well nourished male Psych: euthymic, NAD Neuro: AANDOx3 exam: see below. Procedure: Vasectomy Patient?s identity was confirmed, written informed consent was obtained, and the time out performed before the procedure was initiated The patient was placed in a supine position and the genitalia were prepped and draped in a sterile manner. Examination revealed no scrotal lesions, descended testicles bilaterally without masses and readily palpable vasa deferens. The right scrotal skin and cord structures was anesthetized with 5 cc of 2% lidocaine without epinephrine. A No-scapel technique was used to isolated and remove a small portion of the vas deferens. The vas sheath was opened. The vas deferens was clamped and ligated. The inner lumina of the testicular and abdominal ends of the vas were cauterized. Clips were applied to the testicular end of the vas and to the abdominal end. Adequate hemostasis was achieved. Both ends of the vas deferens were delivered back into the scrotum by fascia.The procedure was repeated on the patient?s left side. The patient tolerated the procedure well. Postoperative care, limitations, and expectations were reviewed with the patient. He was again instructed to use an alternate form of control until he is notified that his postprocedure semen analysis reveals no sperm. Imp: S/p vasectomy Plan: Supply Semen sample for analysis in 3 months Follow up as needed Starr Murillo MD Allergies As of Date: 02/10/2024 Noted Allergy Reaction PENICILLINS 11/28/2013 2 - Rash Date Reviewed: 02/10/2024 Reviewed by: Familia Saucedo MA - Fully Assessed Reason for Visit: Follow Up [171] Cmt: vasectomy Primary Visit Diagnosis:Status post vasectomy [Z98.52] Other Visit Diagnoses:Vasectomy evaluation [Z30.09] Encounter for sterilization [Z30.2] Order(s):BASIC SEMEN ANALYSIS [SQBASA] Order #: [id number]: 1 FUTURE [] lidocaine 20 mg/mL (2 %) 200 mg injection (XYLOCAINE)Disp: Rfl: Prescriptions as of 02/10/2024 - ciprofloxacin HCl (CIPRO) 500 mg tablet 1 PO Q- 24, 12 AND 1 HOUR PRIOR TO PROCEDURE - triazolam (HALCION) 0.25 mg tablet 1 PO Q-1 hour prior to procedure - MULTI-VITAMIN ORAL Take 1 tablet by mouth once daily. Problem List As Of Date: 02/10/2024 (None) Prescriptions ordered this encounter Disp Refills Start End LIDOCAINE HCL 20 MG/ML (2 %) INJECTI* 02/10/2024 02/10/2024 Route: INTRADERM. Disposition: Return for SA after 3 months. Follow-up and Disposition History for Encounter Date Provider Department Center 02/10/2024 [id number][facility] Encounter Status:Closed by STARR MURILLO on 02/10/24 [facility] Telephone (ELYSEBioMedFlexG) ---- VICKI MATTHEWS ([id number]) 1990 M Date Time Provider Department 02/10/24 STARR MURILLO During your visit today, we recorded the following information about you: Akua Mullins 02/16/2024 1:45 PM Signed Opened in error Allergies As of Date: 02/10/2024 Noted Allergy Reaction PENICILLINS 11/28/2013 2 - Rash Date Reviewed: 02/10/2024 Reviewed by: Familia Saucedo MA - Fully Assessed Prescriptions as of 02/16/2024 - ciprofloxacin HCl (CIPRO) 500 mg tablet 1 PO Q- 24, 12 AND 1 HOUR PRIOR TO PROCEDURE - triazolam (HALCION) 0.25 mg tablet 1 PO Q-1 hour prior to procedure - MULTI-VITAMIN ORAL Take 1 tablet by mouth once daily. Problem List As Of Date: 02/10/2024 (None) Encounter Status:Closed by AKUA MULLINS on 02/10/24 [facility] VICKI MATTHEWS ([id number]) 1990 M Date Time Provider Department 02/07/24 STARR MURILLO During your visit today, we recorded the following information about you: Cori Thomas LPN 02/07/2024 4:24 PM Signed This patient saw another provider for a vasectomy consult. No medications were given. Can you please sign the attached order so I can call him tomorrow. His weight was 196lb. Do you want to give 1 or 2 Halcion. Please update pended order if you want to give 2 of them. Thanks, KENRICK Avendano Rebecca, LPN 02/08/2024 9:25 AM Signed Left patient a message to call me back so I can go over any information before and also to let him know to grain picker the medication he is to take before this day. KENRICK Avendano Rebecca, LPN 02/09/2024 11:48 AM Signed Patient did call me back yesterday and we went over all the information he will need for tomorrow. Cori Thomas LPN Allergies As of Date: 02/07/2024 Noted Allergy Reaction PENICILLINS 11/28/2013 2 - Rash Date Reviewed: 01/11/2024 Reviewed by: Jessica Tuttle LPN - Fully Assessed Reason for Visit: Orders [681] Cmt: Vasectomy medication Primary Visit Diagnosis:Vasectomy evaluation [Z30.09] Order(s):ciprofloxa gabrielle HCl (CIPRO) 500 mg tablet1 PO Q- 24, 12 AND 1 HOUR PRIOR TO PROCEDUREDisp: 3 tabletRfl: 0 triazolam (HALCION) 0.25 mg tablet1 PO Q-1 hour prior to procedureDisp: 2 tabletRfl: 0 Prescriptions as of 02/09/2024 - ciprofloxacin HCl (CIPRO) 500 mg tablet 1 PO Q- 24, 12 AND 1 HOUR PRIOR TO PROCEDURE - triazolam (HALCION) 0.25 mg tablet 1 PO Q-1 hour prior to procedure - MULTI-VITAMIN ORAL Take 1 tablet by mouth once daily. Problem List As Of Date: 02/07/2024 (None) Prescriptions ordered this encounter Disp Refills Start End CIPROFLOXACIN 500 MG TABLET 3 ta* 0 02/07/2024 Si PO Q- 24, 12 AND 1 HOUR PRIOR TO PROCEDURE TRIAZOLAM 0.25 MG TABLET 2 ta* 0 02/07/2024 03/13/2024 Si PO Q-1 hour prior to procedure Encounter Status:Closed by STARR MURILLO on 02/07/24 [facility] 01-24-2024 [facility] Telephone (URCANT) ---- VICKI MATTHEWS ([id number]) 1990 M Date Time Provider Department 01/24/24 LILIBETH LAZARO URCANDonavon During your visit today, we recorded the following information about you: Yodit Healy 01/24/2024 10:30 AM Signed Pts vasectomy appt was made in the [facility] office in error. It needs scheduled, [facility] Central scheduling [phone]. Pt needs to call Central Scheduling directly to schedule his procedure. LVM for Pt to call the office to get appt rescheduling instructions. Yodit Ca 01/31/2024 1:19 PM Signed Pt called, gave scheduling information Yodit Healy Allergies As of Date: 01/24/2024 Noted Allergy Reaction PENICILLINS 11/28/2013 2 - Rash Date Reviewed: 01/11/2024 Reviewed by: Jessica Tuttle LPN - Fully Assessed Reason for Visit: Appointment [186] Prescriptions as of 01/31/2024 - MULTI-VITAMIN ORAL Take 1 tablet by mouth once daily. Problem List As Of Date: 01/24/2024 (None) Encounter Status:Closed by YODIT HEALY on 01/26/24 [facility] 01-21-2024 CNPN Telephone (UROUPD) ---- VICKI MATTHEWS ([id number]) 1990 M Date Time Provider Department 01/21/24 LILIBETH LAZARO UROUPD During your visit today, we recorded the following information about you: Lilibeth Lazaro DO 01/21/2024 2:37 PM Signed Pt scheduled as in office vasectomy at [facility] 02/06 , cannot be performed at [facility]. Please advise him of this. Also let him know that I can perform for him in OR at [place], I just need to see him first, or if he would prefer in office vasectomy at other location , please reschedule with other Urologist DO Janice Erazo Caterra 01/21/2024 3:27 PM Signed 01/20 lm for pt to call back and get rescheduled. Jennyfer Corral 02/01/2024 11:31 AM Signed Spoke to patient canceled appt, patient will call to get rescheduled. Allergies As of Date: 01/21/2024 Noted Allergy Reaction PENICILLINS 11/28/2013 2 - Rash Date Reviewed: 01/11/2024 Reviewed by: Parag, Jessica, HANDMADE TILE ARTIST - Fully Assessed Prescriptions as of 02/01/2024 - MULTI-VITAMIN ORAL Take 1 tablet by mouth once daily. Problem List As Of Date: 01/21/2024 (None) Encounter Status:Closed by [facility] ---- VICKI MATTHEWS ([id number]) 1990 M Date Time Provider Department 01/11/24 8:30 AM GABO SRIVASTAVA During your visit today, we recorded the following information about you: Temperature Pulse Respiration Blood pressure 97.6 degrees 84/minute 12/minute 110/76 Weight Height 88.9 kg 1.803 m Gabo Srivastava PA-C 01/11/2024 9:04 AM Signed Vicki Matthews January 11, 2024 Referred by: CC: Desires permanent sterilization HPI: 33 year old male states he desire permanent surgical sterilization. Reports fathering 3 children and expressly states he does not desire to father children in the future. Genitourinary history: Hx undescended testis: No Hx stone disease: No Hx UTI/prostatitis/epi didimitis/STI: No Sexual frequency/libido: No Urinary sx: No Hematuria: No No family history on file. No past medical history on file. No past surgical history on file. Current Outpatient Medications Medication Sig MULTI-VITAMIN ORAL Take by mouth. No current facility-administer ed medications for this visit. Allergies: Penicillins Social History Tobacco Use Smoking status: Never Substance Use Topics Alcohol use: Yes Comment: social Drug use: No Occupation/exposure s: None ROS: ENMT: No changes in hearing or vision, no nose bleeds or other nasal problems SKIN: Negative for lesions, rash, and itching. ENDOCRINE: Negative for cold or heat intolerance, polyuria, polydipsia and goiter. RESPIRATORY: Negative for cough, wheezing and shortness of breath CARDIOVASCULAR: Negative for chest pain, leg swelling and palpitations; Syncopal Episodes in the past GI: Negative for abdominal discomfort, blood in stools or black stools : Negative for dysuria, frequency and incontinence MUSCULOSKELETAL: Negative for joint pain or swelling, back pain, and muscle pain. PSYCH: Negative for sleep disturbance, mood disorder and recent psychosocial stressors. NEURO: Negative All other systems reviewed and are negative. Physical Exam: There were no vitals taken for this visit. General appearance: cooperative, pleasant, no acute distress, alert and oriented, well hydrated, well nourished male. Genitourinary: Scrotum: non-tender, non-erythematous, no lesions Testes: descended bilaterally, non-tender,nl size bilaterally, no intratesticular masses bilaterally. Epididymes: Intact bilaterally, non-tender, no masses, palpable vas bilaterally. Penis: non-tender, NL phallus, no lesions, circumcision Yes, NL meatus, no identifiable peyronie's plaque. Assessment: 33 year old male desires vasectomy. The patient attests that he watched and understood the AUA Vasectomy video and read and understood the No-Scalpel Vasectomy pamphlet. He was instructed to stop all NSAIDs, aspirin and other blood thinners 5 days prior to the vasectomy. He was instructed to shave entire front of scrotum to the base of the penis the morning of the vasectomy. Postprocedure care, expectations, and limitations were discussed. He voiced understanding of these instructions and stated his questions were answered. Plan: 1) Proceed to vasectomy scheduling I personally counseled this patient about the following and he voiced understanding: a) Vasectomy is a permanent and irreversible form of sterilization b) 1:1,000 rate of recanalization which can results in the return of sperm into the ejaculate after vasectomy c) Patient must use alternative form of control until he is notified that his postprocedure semen analysis contained no sperm. Consultation requested by Self for an opinion regarding vasectomy and my final recommendations will be communicated back to the requesting physician by way of shared Medical record or letter via [place] mail. Visit duration 30 minutes with approximately 50% of time in counseling Gabo Srivastava, LIA, MT, PAJonasC Allergies As of Date: 01/11/2024 Noted Allergy Reaction PENICILLINS 11/28/2013 2 - Rash Date Reviewed: 01/11/2024 Reviewed by: Jessica Tuttle LPN - Fully Assessed Reason for Visit: Vasectomy-1 [118] Primary Visit Diagnosis:Vasectomy evaluation [Z30.09] Order(s):VASECTOMY [29681HDC] Order #: [id number] Prescriptions as of 01/11/2024 - MULTI-VITAMIN ORAL Take 1 tablet by mouth once daily. Problem List As Of Date: 01/11/2024 (None) Encounter Status:Closed by GABO SRIVASTAVA on 01/11/24 [facility] CNOVon 08-09-2023 CNOV Office Visit (PODIWS) ---- VICKI MATTHEWS ([id number]) 1990 M Date Time Provider Department 08/09/23 8:30 AM DAYAN BECERRA [facility] During your visit today, we recorded the following information about you: Rhonda Huerta LPN 08/09/2023 9:03 AM Signed AMB ROOMING INTAKE FLOWSHEET DATA Pain Pain Level: 2 Pain Location: Ankle-Right Description: Sharp, Sore Duration Amount of Time: 3 Duration Units: Months Frequency: Intermittent Intervention/Comfor t measure: Reposition, Relaxation Patient presents with: Right Ankle - New, Pain KENRICK Bateman Matthew 08/09/2023 9:03 AM Signed Consultation requested by Dr. Zambrano for an opinion regarding ankle sprain. My final recommendations will be communicated back to the requesting physician by way of shared Medical record or letter to requesting physician via US mail. Initial Podiatric Office Visit: Chief Complaint: This 33 year old male who presents with chief complaint:right ankle pain HPI Patient presents to clinic for evaluation of right ankle. Patient states that back in the late Fall (just before ), he rolled his right foot on a tree stump. He treated with ice and elevation and the pain eventually resolved He states that back in June, he rolled his right ankle a subsequent time. He states that if he moves his foot in and out, he has pain. He states his ankle is very unstable. He likes to run and wants to get his ankle in better shape before he resumes running. PAIN EVALUATION 08/09/2023 0820 Pain Level: 2 Pain Location: Ankle-Right Description: Sharp;Sore Duration Amount of Time: 3 Duration Units: Months Frequency: Intermittent Intervention/Comfor t measure: Reposition;Relaxati on No results found for: HBA1C PCP: No primary care provider on file. No past medical history on file. Current Outpatient Medications Medication Sig MULTI-VITAMIN ORAL Take by mouth. No current facility-administer ed medications for this visit. ALLERGIES Allergen Reactions Penicillins Rash No past surgical history on file. No family history on file. Social History Tobacco Use Smoking status: Never Substance Use Topics Alcohol use: Yes Comment: social Drug use: No REVIEW OF SYSTEMS GENERAL: Negative for Malaise, significant weight loss, fever RESPIRATORY: Negative for cough, wheezing and shortness of breath CARDIOVASCULAR: Negative for chest pain, leg swelling and palpitations GI: Negative for abdominal discomfort, blood in stools or black stools and change in bowel habits : Negative for dysuria, frequency and incontinence MUSCULOSKELETAL: Negative for joint pain or swelling, back pain, and muscle pain. SKIN: Negative for lesions, rash, and itching. HEMATOLOGY/LYMPHOLO GY Negative for prolonged bleeding, bruising easily, and swollen nodes. ENDOCRINE: Negative for cold or heat intolerance, polyuria, polydipsia and goiter. NEURO: negative Physical Exam: Constitutional: Pt is a well developed 33 year old male who is alert, oriented and cooperative Eyes: Following during examination. No redness or drainage. Respiratory: RR normal and nonlabored. Even breathing. No evidence of distress or shortness of breath. Psychology: Patient is engaged during conversation. Normal affect and mood. Does not appear depressed or anxious during encounter. Vascular: Dorsalis pedis and posterior tibial pulses palpable as b/l Capillary Fill time < 5 seconds to digits 1-5 b/l Skin temperature warm to warm proximal to distal b/l Hair growth present to digits Neurological: intact light touch/epicritic sensation b/l intact protective sensation no significant neurological deficits Dermatological: Right 2nd toenail is dystrophic. Webspaces clean and dry 1-4 b/l. Skin appears well hydrated and supple. good color, texture, turgor. No open lesions present. No callosities present. Questionable areas of wart vs rubbing on b/l great toes.. Musculoskeletal/Ort hopaedic: Patient has pain to palpation of right atfl No laxity with anterior drawer Foot type is neutral structurally AJ ROM is full with knee extended and flexed 1st MPJ is full when loaded and no pain or crepitus are noted with ROM. MTJ, STJ are full and free of pain and crepitus. +5/5 muscle strength dorsiflexion, plantarflexion, inversion, eversion b/l Radiographs: 3 views right ankle reviewed August 09, 2023: I have personally reviewed and interpreted these XR myself: no acute fracture ASSESSMENT: (S93.401A) Sprain of right ankle, unspecified ligament, initial encounter (primary encounter diagnosis) (M25.571) Acute right ankle pain PLAN: 1. History and physical examination performed. 2. XR reviewed with patient and interpreted today 3. Discussed ankle instability. Offered bracing and referral to therapy. He declined bracing. (more content not included)... Normal [facility] CNOVon 07-19-2023 CNOV Office Visit (WSTR) ---- VICKI MATTHEWS ([id number]) 1990 M Date Time Provider Department 07/19/23 10:30 AM RUI ZAMBRANO [facility] During your visit today, we recorded the following information about you: Temperature Pulse Respiration Blood pressure 96.4 degrees 68/minute 21/minute 130/86 Weight 92.9 kg Rui Zambrano APRN.ASSISTANT PROJECT ENGINEER 07/19/2023 11:48 AM Signed Subjective HPI Nontoxic-appearing male presents urgent care chief plaint right ankle injury. Duration of symptoms ongoing. States first twisted his ankle over Thanksgiving that has resolved almost completely and then really rolled his ankle again last night. Presents today due to persistent discomfort. Having a hard time bearing weight. No numbness no tingling. No decrease sensation. Denies any other injuries. Denies fractures or surgeries previously. Past medical history prescription medication use allergies reviewed. BP 130/86 Pulse 68 Temp (!) 35.8 ?C (96.4 ?F) Resp 21 Wt 92.9 kg (204 lb 12.8 oz) SpO2 99% .Patient presents with: Trauma: Rolled right ankle last night No past medical history on file. No past surgical history on file. ALLERGIES Penicillins MEDICATIONS No prescriptions on file. No family history on file. Social History Tobacco Use Smoking status: Never Substance Use Topics Alcohol use: No Drug use: No Review of Systems Constitutional: Negative for chills, fever and malaise/fatigue. HENT: Negative for congestion, ear discharge, ear pain, sinus pain and sore throat. Eyes: Negative for blurred vision, pain, discharge and redness. Respiratory: Negative for cough, hemoptysis, sputum production, shortness of breath, wheezing and stridor. Cardiovascular: Negative for chest pain. Gastrointestinal: Negative for abdominal pain, diarrhea, nausea and vomiting. Musculoskeletal: Positive for falls and joint pain. Negative for myalgias. Skin: Negative for itching and rash. Neurological: Negative for dizziness and headaches. Objective Physical Exam Constitutional: General: He is not in acute distress. Appearance: He is not toxic-appearing. HENT: Head: Normocephalic. Nose: Nose normal. Eyes: Pupils: Pupils are equal, round, and reactive to light. Cardiovascular: Rate and Rhythm: Normal rate. Pulmonary: Effort: Pulmonary effort is normal. No respiratory distress. Musculoskeletal: Cervical back: Normal range of motion. Right lower leg: Normal. Right ankle: No swelling, deformity, ecchymosis or lacerations. Tenderness present over the lateral malleolus. Normal range of motion. Right Achilles Tendon: No tenderness. Right foot: Normal. Comments: No erythema edema noted. Mild tenderness over the lateral malleolus. Neurovascular intact. No weaknesses or decreased range of motion. Skin: General: Skin is warm and dry. Neurological: General: No focal deficit present. Mental Status: He is alert. ASSESSMENT/PLAN: 1. Acute right ankle pain - ICD9: 719.47, 338.19, ICD10: M25.571 - XR ANKLE GENERAL 3V AP/LAT/OBL RIGHT - CONSULT TO ORTHOPAEDICS IMPRESSION: No acute radiographic abnormalities seen in the right ankle. No acute fractures noted on x-ray. No laxity in joint. Treat as ankle sprain. Follow-up orthopedic symptoms not improving in 10 to 14 days. Patient was educated on supportive therapies. Patient will follow up with primary care provider as needed. Patient was instructed to immediately proceed to emergency room for any new, worsening, or symptoms lasting longer than anticipated. The patient's clinical presentation is otherwise unremarkable at this time. Based on exam and clinical finding, the patient is stable for discharge. Plan of care was discussed with patient. Patient verbalizes understanding and agrees to plan of care. This note was generated using LectureTools software. It may contain errors in wording, punctuation, or spelling. Rui Zambrano APRN.ASSISTANT PROJECT ENGINEER Allergies As of Date: 07/19/2023 Noted Allergy Reaction PENICILLINS 11/28/2013 2 - Rash Date Reviewed: 07/19/2023 Reviewed by: Lucy Duran MA - Fully Assessed Reason for Visit: Trauma [112] Cmt: Rolled right ankle last night Primary Visit Diagnosis:Acute right ankle pain [M25.571] Order(s):XR ANKLE GENERAL 3V AP/LAT/OBL RIGHT [8768991] Order #: [id number] FUTURE CONSULT TO ORTHOPAEDICS [9026] Order #: [id number]: 1 FUTURE Problem List As Of Date: 07/19/2023 (None) Level of Service: OFFICE/OUTPATIENT ESTABLISHED LOW [facility] 20 MIN [83768] Encounter Status:Closed by RUI ZAMBRANO on 07/19/23 [facility] XR ANKLE 3V AP/LAT/OBL RTon 07-19-2023 XR ANKLE 3V AP/LAT/OBL RT * * *Final Rep ort* * * DATE OF EXAM: Jul 19 2023 11:08AM WOX 5297 - XR ANKLE 3V AP/LAT/OBL RT / PROCEDURE REASON: Acute right ankle pain * * * * Physician Interpretation * * * * EXAM TITLE: XR ANKLE 3V AP/LAT/OBL RT EXAM DATE/TIME: 07/19/2023 11:08 AM COMPARISON: None. CLINICAL INDICATION/HISTORY: Acute ankle pain. TECHNIQUE: AP, mortise and lateral views of the right ankle are presented. FINDINGS: No acute fractures or subluxations are noted. Small bony protuberance from the lateral aspect of the talus; it does not seem to be acute. The mortise joint spaces are well preserved. There is no ankle joint effusion. The mineralization of the bones is normal. There is no significant soft tissue swelling. IMPRESSION: No acute radiographic abnormalities seen in the right ankle. Automation Tender: [facility] Transcribe Date/Time: Jul 19 2023 11:16A Dictated by : ZIGGY KOCH MD This examination was interpreted and the report reviewed and electronically signed by: ZIGGY KOCH MD on Jul 19 2023 11:20AM EST [id number] Normal [facility] XR Ankle - right AP and Late ral and obliqueon 07-19-2023 IMPRESSION: No acute radiographic abnormalities seen in the right ankle. Automation Tender: [facility] Transcribe Date/Time: Jul 19 2023 11:16A Dictated by : ZIGGY KOCH MD This examination was interpreted and the report reviewed and electronically signed by: ZIGGY KOCH MD on Jul 19 2023 11:20AM EST DIVISION OF RADIOLOGY * * *Final Report* * * DATE OF EXAM: Jul 19 2023 11:08AM WOX 5297 - XR ANKLE 3V AP/LAT/OBL RT / PROCEDURE REASON: Acute right ankle pain * * * * Physician Interpretation * * * * EXAM TITLE: XR ANKLE 3V AP/LAT/OBL RT EXAM DATE/TIME: 07/19/2023 11:08 AM COMPARISON: None. CLINICAL INDICATION/HISTORY: Acute ankle pain. TECHNIQUE: AP, mortise and lateral views of the right ankle are presented. FINDINGS: No acute fractures or subluxations are noted. Small bony protuberance from the lateral aspect of the talus; it does not seem to be acute. The mortise joint spaces are well preserved. There is no ankle joint effusion. The mineralization of the bones is normal. There is no significant soft tissue swelling. DIVISION OF RADIOLOGY Provider, [facility] - 07/19/2023 * * *Final Report* * * DATE OF EXAM: Jul 19 2023 11:08AM WOX 5297 - XR ANKLE 3V AP/LAT/OBL RT / PROCEDURE REASON: Acute right ankle pain * * * * Physician Interpretation * * * * EXAM TITLE: XR ANKLE 3V AP/LAT/OBL RT EXAM DATE/TIME: 07/19/2023 11:08 AM COMPARISON: None. CLINICAL INDICATION/HISTORY: Acute ankle pain. TECHNIQUE: AP, mortise and lateral views of the right ankle are presented. FINDINGS: No acute fractures or subluxations are noted. Small bony protuberance from the lateral aspect of the talus; it does not seem to be acute. The mortise joint spaces are well preserved. There is no ankle joint effusion. The mineralization of the bones is normal. There is no significant soft tissue swelling. IMPRESSION IMPRESSION: No acute radiographic abnormalities seen in the right ankle. Automation Tender: [facility] Transcribe Date/Time: Jul 19 2023 11:16A Dictated by : ZIGGY KOCH MD This examination was interpreted and the report reviewed and electronically signed by: ZIGGY KOCH MD on Jul 19 2023 11:20AM EST [facility] Radiology Study observation (narrative) [facility] XR Ankle - right AP and Late ral and obliqueOrdered By: [facility]cf Provider on 07-19-2023 [facility] Basic Metabolic Profile (BMP )on 01-26-2023 BUN/CRE 9.6 RATIO Low 10-20 [facility] Comment on above: Order Comment: 1 Y Performed By: #### L 100.0100, L500.2500, L501.5425 #### [facility] [address] [place], [address] CA,Total 9.0 mg/dL Normal 8.5-10.1 [facility] Comment on above: Order Comment: 1 Y Performed By: #### L 100.0100, L500.2500, L501.5425 #### [facility] [address] [place], [address] Chloride [Moles/Vol] 109 mmol/L High 98-107 [facility] Comment on above: Order Comment: 1 Y Performed By: #### L 100.0100, L500.2500, L501.5425 #### [facility] [address] [place], [address] CO2 [Moles/Vol] 24.0 mmol/L Normal 21.0-32.0 [facility] Comment on above: Order Comment: 1 Y Performed By: #### L 100.0100, L500.2500, L501.5425 #### [facility] [address] [place], [address] Creatinine [Mass/Vol] 1.46 mg/dL High 0.70-1.30 [facility] Comment on above: Order Comment: 1 Y Result Comment: The validity of the calculated GFR GFRAA in patients over 70 years has not been determined. Clinical correlation is essential. Performed By: #### L 100.0100, L500.2500, L501.5425 #### [facility] [address] [place], [address] ECRCL 78.08 ml/min Normal [facility] Comment on above: Order Comment: 1 Y Performed By: #### L 100.0100, L500.2500, L501.5425 #### [facility] [address] [place], [address] EST GFR - AA 72 mL/min Normal >60 [facility] Comment on above: Order Comment: 1 Y Result Comment: Afri can [place] GFR Calc Performed By: #### L 100.0100, L500.2500, L501.5425 #### [facility] [address] [place], [address] GAP 6 Normal 5-15 [facility] Comment on above: Order Comment: 1 Y Performed By: #### L 100.0100, L500.2500, L501.5425 #### [facility] [address] [place], [address] GFR/1.73 sq M.predicted among non-blacks MDRD (S/P/Bld) [Vol rate/Area] 60 mL/min/{1.73_m2} Normal >60 [facility] Comment on above: Order Comment: 1 Y Result Comment: Non- GFR Calc Performed By: #### L 100.0100, L500.2500, L501.5425 #### [facility] [address] [place], [address] Glucose [Mass/Vol] 132 mg/dL High 74-106 [facility] Comment on above: Order Comment: 1 Y Result Comment: Fast ing Glucose result greater than or equal to 126 mg/dL suggests DIABETES MELLITUS per A.D.A. criteria. Performed By: #### L 100.0100, L500.2500, L501.5425 #### [facility] [address] [place], [address] Potassium [Moles/Vol] 3.9 mmol/L Normal 3.5-5.1 [facility] Comment on above: Order Comment: 1 Y Performed By: #### L 100.0100, L500.2500, L501.5425 #### [facility] [address] [place], [address] Sodium [Moles/Vol] 139 mmol/L Normal 136-145 [facility] Comment on above: Order Comment: 1 Y Performed By: #### L 100.0100, L500.2500, L501.5425 #### [facility] [address] [place], [address] Urea nitrogen [Mass/Vol] 14 mg/dL Normal 7-18 [facility] Comment on above: Order Comment: 1 Y Performed By: #### L 100.0100, L500.2500, L501.5425 #### [facility] [address] [place], [address] CBC W/Diff, Automatedon 01-09 Absolute Lymph 4.26 X10 3/uL Normal 0.83-4.51 [facility] Comment on above: Performed By: #### L 100.0100, L500.2500, L501.5425 #### [facility] [address] [place], [address] Absolute Neut 2.4 X10 3/uL Normal 2.0-7.7 [facility] Comment on above: Performed By: #### L 100.0100, L500.2500, L501.5425 #### [facility] [address] [place], [address] Basophils/100 WBC (Bld) 0.5 % Normal 0-1 [facility] Comment on above: Performed By: #### L 100.0100, L500.2500, L501.5425 #### [facility] [address] [place], [address] Eosinophils/100 WBC (Bld) 2.2 % Normal 0-5 [facility] Comment on above: Performed By: #### L 100.0100, L500.2500, L501.5425 #### [facility] [address] [place], [address] Erythrocyte distribution width (RBC) [Ratio] 13.4 % Normal 11.6-14.6 [facility] Comment on above: Performed By: #### L 100.0100, L500.2500, L501.5425 #### [facility] [address] [place], [address] Hematocrit (Bld) [Volume fraction] 43.1 % Normal 40-54 [facility] Comment on above: Performed By: #### L 100.0100, L500.2500, L501.5425 #### [facility] [address] [place], [address] Hemoglobin (Bld) [Mass/Vol] 14.3 g/dL Normal 13.0-16.5 [facility] Comment on above: Performed By: #### L 100.0100, L500.2500, L501.5425 #### [facility] [address] [place], [address] IG% 0.300 Normal 0.0-0.9 [facility] Comment on above: Result Comment: IG% - Immature Granulocytes (promyelocytes, myelocytes and metamyelocytes) > 1% indicates that a LEFT SHIFT is Present. Performed By: #### L 100.0100, L500.2500, L501.5425 #### [facility] [address] [place], [address] Lymphocytes/100 WBC (Bld) 56.3 % High 19-41 [facility] Comment on above: Performed By: #### L 100.0100, L500.2500, L501.5425 #### [facility] [address] [place], [address] MCH (RBC) [Entitic mass] 27.4 pg Normal 27.0-32.0 [facility] Comment on above: Performed By: #### L 100.0100, L500.2500, L501.5425 #### [facility] [address] [place], [address] MCHC (RBC) [Mass/Vol] 33.2 g/dL Normal 32-36 [facility] Comment on above: Performed By: #### L 100.0100, L500.2500, L501.5425 #### [facility] [address] [place], [address] MCV (RBC) [Entitic vol] 82.6 fL Normal 80-94 [facility] Comment on above: Performed By: #### L 100.0100, L500.2500, L501.5425 #### [facility] [address] [place], [address] Monocytes/100 WBC (Bld) 9.2 % Normal 0-10 [facility] Comment on above: Performed By: #### L 100.0100, L500.2500, L501.5425 #### [facility] [address] [place], [address] Neutrophils/100 WBC (Bld) 31.5 % Low 47-70 [facility] Comment on above: Performed By: #### L 100.0100, L500.2500, L501.5425 #### [facility] [address] [place], [address] Nucleated RBC (Bld) [#/Vol] 0 10*3/uL Normal 0-5 [facility] Comment on above: Performed By: #### L 100.0100, L500.2500, L501.5425 #### [facility] [address] [place], [address] Platelet mean volume (Bld) [Entitic vol] 9.8 fL Normal 6.2-12.0 [facility] Comment on above: Performed By: #### L 100.0100, L500.2500, L501.5425 #### [facility] [address] [place], [address] Platelets (Bld) [#/Vol] 300 10*3/uL Normal 150-450 [facility] Comment on above: Performed By: #### L 100.0100, L500.2500, L501.5425 #### [facility] [address] [place], [address] RBC (Bld) [#/Vol] 5.22 10*6/uL Normal 4.6-6.2 [facility] Comment on above: Performed By: #### L 100.0100, L500.2500, L501.5425 #### [facility] [address] [place], [address] RDW SD 40.3 fl Normal 35.1-43.9 [facility] Comment on above: Performed By: #### L 100.0100, L500.2500, L501.5425 #### [facility] [address] [place], [address] WBC (Bld) [#/Vol] 7.6 10*3/uL Normal 4.4-11.0 [facility] Comment on above: Performed By: #### L 100.0100, L500.2500, L501.5425 #### [facility] [address] [place], [address] Emergency Department Summary on 01-26-2023 Emergency Department Summary [facility] Medical Records Department [address] [place] [address] Emergency Department Summary 01/25/23 MR#: [id number] Acct: [id number] Name: VICKI MATTHEWS Rep #: [id number] : 1990 32 From: Ephraim Zamora DO PCP: Care Physician,No Primary Status:REG ER Location: ED ADDENDUM by Dr. Naren Philippe MD on 01/26/23 at 0104 Patient checked out to me his second troponin came back negative, with a level of 4. He is doing well his rhythm is normal, sinus, vital signs are normal, he feels well and will be discharged home we discussed the possibilities here, certainly vasovagal is in the differential, and he is safe for close outpatient follow-up advised to stay hydrated in the meantime he is comfortable with that plan. 01/26/234 Cosigner Signature (if applicable): cc: No Primary Care Physician * Signed HPI History of Present Illness Chief Complaint: Syncope Informant: patient and spouse/S.O. Onset/Context/Judith hawkins Onset: Today Context: Sudden Onset Timing: Intermittent and Lasts (5 to 15 seconds) Quality: Syncope Location: Generalized Worsened by: Nothing Relieved by: Nothing Narrative Narrative: Patient presents with a syncopal episode that occurred tonight. Patient actually had 3 syncopal episodes tonight while he was eating dinner. Patient states he was not eating anything unusual or anything that he has never had before. states that the patient had 1 episode where he could not lift his arms and his arms were weak and he started to fall forward. states that the second episode patient clenched his fist and started to lean backwards. states that the third episode he also clenched his fists and fell towards the right side. Patient was seated with all of these episodes. states the first 1 lasted a few seconds. states that the second and third episodes lasted 10 to 15 seconds. Patient felt sweaty prior to the first episode. Patient denies any chest pain or palpitations. Patient states that he had some syncopal episodes several years ago and was diagnosed with vasovagal syncope. Patient states that these episodes felt different. Patient states that he did start CBD Gummies recently [facility] Medical History (Updated 01/25/23 @ 23:[address] Ephraim Zamora, ) Vasovagal episode Home Medications NK 01/25/23 [History Last Taken Unknown] Allergy/AdvReac Type Severity Reaction Status Date / Time Penicillins Allergy Severe Hives Verified 01/25/23 20:30 Family History no significant family his Surgical History (Updated 01/25/23 @ 23:[address] Ephraim Zamora DO) Hx of tonsillectomy Social History Smoking Status: Never smoker ROS ROS ED Constitutional Constitutional ED: Reports sweats; Denies chills or fever(s) Eyes Eyes: Denies blurry vision or change in vision ENT ENT ED: Denies rhinorrhea or sore throat Cardiovascular Cardiovascular: Denies chest pain or palpitations Respiratory/Chest Respiratory/Chest: Denies cough or dyspnea Gastrointestinal Gastrointestinal: Denies nausea or vomiting Genitourinary Genitourinary ED: Denies dysuria or hematuria Musculoskeletal Musculoskeletal: Denies back pain or neck pain Integumentary Denies abscess or rash Neurologic Neurologic: Reports weakness; Denies headache(s) Allergic/Immunologi c Allergic/Immunologi c ED: Denies mouth swelling or urticaria EXAM Physical Exam Const Vital Signs: 01/25/23 20:27 01/25/23 20:32 01/25/23 22:03 Temperature 97.7 F L Temperature Source Temporal Pulse Rate 57 L 64 Pulse Rate [Lying] Pulse Rate [Sitting (for 1 minute prior to obtaining)] Pulse Rate [Standing (for 1 minute prior to obtaining)] Respiratory Rate 18 17 Respiratory Effort Normal Respiratory Pattern Normal Blood Pressure 124/73 H 125/85 H Blood Pressure [Lying] Blood Pressure [Sitting (for 1 minute prior to obtaining)] Blood Pressure [Standing (for 1 minute prior to obtaining)] Blood Pressure Mean 90 98 Blood Pressure Mean [Lying] Blood Pressure Mean [Sitting (for 1 minute prior to obtaining)] Blood Pressure Mean [Standing (for 1 minute prior to obtaining)] Pulse Ox 100 99 Oxygen Delivery Method Room Air Room Air 01/25/23 22:23 Temperature Temperature Source Pulse Rate Pulse Rate [Lying] 73 Pulse Rate [Sitting (for 1 minute prior to obtaining)] 78 Pulse Rate [Standing (for 1 minute prior to obtaining)] 98 Respiratory Rate Respiratory Effort Respiratory Pattern Blood Pressure Blood Pressure [Lying] 126/74 H Blood Pressure [Sitting (for 1 minute prior to obtaining)] 138/79 H Blood Pressure [Standing (for 1 minute prior to obtaining)] 132/81 H Blood Press (more content not included)... Normal [facility] L501.4020on 01-26-2023 TROPONIN-I HS 4 pg/mL Normal 3.0-78.0 [facility] Comment on above: Result Comment: Plea se Note: New Test Units and Gender Specific Reference Ranges. For more information see Policy Stat Procedure [place] High Sensitivity Troponin (TNIH) and attachments. Performed By: #### L 501.4020 #### [facility] [address] [place], [address] L501.5425on 01-26-2023 TROPONIN-I HS < 3 Low 3.0-78.0 [facility] Comment on above: Order Comment: 1 Y Result Comment: Plea se Note: New Test Units and Gender Specific Reference Ranges. For more information see Policy Stat Procedure [place] High Sensitivity Troponin (TNIH) and attachments. Performed By: #### L 100.0100, L500.2500, L501.5425 #### [facility] [address] [facility] [place], [address] Brain/Head without Contrasto n 01-25-2023 Brain/Head without Contrast [facility] Imaging Services [address] [place] [address] Brain/Head without Contrast MR#: [id number] Acct: [id number] Name: VICKI MATTHEWS Rep #: [id number] : 1990 M 32 From: Adelso Gamble MD PCP: Care Physician,No Primary Status: REG ER Study: Brain/Head without Contrast Date of Exam: 01/09 01/31 Exam# [id number] Ordering Dr: Ephraim Zamora DO STUDY: CT BRAIN WITHOUT CONTRAST REASON FOR EXAM: Male, 32 years old. Syncope RADIATION DOSAGE (If Supplied By Facility): CTDIvol = ( 44.99 ) mGy, DLP = ( 812.98 ) mGycm TECHNIQUE: Transaxial CT imaging of the brain was performed without administration of intravenous contrast material. Individualized dose optimization techniques were used for this CT. COMPARISON: No relevant priors. FINDINGS: Normal soft tissue structures. Normal calvarium. Normal size ventricles and extra-axial spaces for the patient''s age. Normal white matter tracts of the cerebral hemispheres. Normal basal ganglia and thalami. Normal brainstem. Normal cerebellum. There is no intracranial hemorrhage. There are no findings of an acute ischemic infarction. Normal visualized paranasal sinuses. CT/Brain/Head without Contrast IMPRESSION: Normal unenhanced CT scan of the brain. Electronically Signed: Adelso Gabmle MD at 22:39 EDT Reading Location ID and State: [facility] / [place] Tel , Service support , CC: Dr. Ephraim Zamora DO; No Primary Care Physician Automation Tender: Signed Normal [facility] Vital Signs Date Time Vital Sign Value Performing Clinician Facility 01-01-2025 18:00-0400 Body temperature 98.4 [degF] No Primary Care Physician [facility] 01-01-2025 18:00-0400 Diastolic blood pressure 82 mm[Hg] No Primary Care Physician [facility] 01-01-2025 18:00-0400 Heart rate 71 /min No Primary Care Physician [facility] 01-01-2025 18:00-0400 Respiratory rate 18 /min No Primary Care Physician [facility] 01-01-2025 18:00-0400 SaO2% (BldA) [Mass fraction] 99 % No Primary Care Physician [facility] 01-01-2025 18:00-0400 Systolic blood pressure 134 mm[Hg] No Primary Care Physician [facility] 01-01-2025 16:12-0400 Body mass index (BMI) [Ratio] 28.4 kg/m2 No Primary Care Physician [facility] 01-01-2025 16:12-0400 Body weight 95 kg No Primary Care Physician [facility] 01-01-2025 14:56-0400 Body height 182.88 cm No Primary Care Physician [facility] 02-10-2024 13:39-0400 Body height 180.3 cm Starr Murillo MD Work Phone: [facility] 02-10-2024 13:39-0400 Body mass index (BMI) [Ratio] 26.78 kg/m2 Starr Murillo MD Work Phone: [facility] 02-10-2024 13:39-0400 Body weight 87.09 kg Starr Murillo MD Work Phone: [facility] 01-11-2024 08:30-0400 Body height 180.3 cm Gabo Srivastava PA-C Work Phone: [facility] 01-11-2024 08:30-0400 Body mass index (BMI) [Ratio] 27.34 kg/m2 Gabo Srivastava PA-C Work Phone: [facility] 01-11-2024 08:30-0400 Body temperature 97.59 [degF] Gbao Srivastava PA-C Work Phone: [facility] 01-11-2024 08:30-0400 Body weight 88.91 kg Gabo Srivastava PA-C Work Phone: [facility] 01-11-2024 08:30-0400 Diastolic blood pressure 76 mm[Hg] Gabo Srivastava PA-C Work Phone: [facility] 01-11-2024 08:30-0400 Heart rate 84 /min Gabo Srivastava PA-C Work Phone: [facility] 01-11-2024 08:30-0400 Respiratory rate 12 /min Gabo Srivastava PA-C Work Phone: [facility] 01-11-2024 08:30-0400 SaO2% (BldA) [Mass fraction] 100 % Gabo Srivastava PA-C Work Phone: [facility] 01-11-2024 08:30-0400 Systolic blood pressure 110 mm[Hg] Gabo Srivastava PA-C Work Phone: [facility] Encounters Encounter Date Encounter Type Care Provider Facility Start: 01-01-2025 Non-patient / Non-visit Dr. Susan Guajardo MD -[facility] Start: 01-01-2025 Evaluation and manag ement of inpatient Dr. Shiraz Guajardo MD -Medical Surgical 3 Work Phone: Start: 01-01-2025 observation encounter No Prima Care Physician [facility] Work Phone: Start: 05-12-2024 End: 05-12-2024 Telephone encounter Starr Murillo MD Work Phone: [facility] [place] [facility] [place] Comment on above: Results (Sperm sampl e results) Start: 02-10-2024 Telephone encounter Starr Murillo MD Work Phone: Urology Start: 02-10-2024 End: 02-10-2024 Patient encounter procedure Starr Murillo MD Work Phone: Urology Comment on above: Status post vasectom y (Primary Dx); Vasectomy evaluation; Encounter for sterilization Start: 02-10-2024 End: 02-10-2024 ambulatory STARR MURILLO Facility:[facility] Start: 02-07-2024 Telephone encounter Starr Murillo MD Work Phone: [facility] [place] Department [facility] [place] Comment on above: Orders (Vasectomy me dication) Start: 01-24-2024 Telephone encounter Lilibeth Elizabeth Bone DO Work Phone: Urology Comment on above: Appointment Start: 01-21-2024 Telephone encounter Lilibeth Bone DO Work Phone: [facility] Start: 01-11-2024 End: 01-11-2024 ambulatory GABO SRIVASTAVA Facility:[facility] Start: 01-11-2024 End: 01-11-2024 Patient encounter procedure Gabo Cindy PA-C Work Phone: Urology Comment on above: Vasectomy evaluation (Primary Dx) Start: 08-09-2023 End: 08-09-[address] [facility] Facility:[facility] Start: 07-19-2023 End: 07-19-2023 Subsequent hospital visit by physician Xr [facility] Work Phone: Radiology Comment on above: Acute right ankle pa in [M25.571] Start: 07-19-2023 End: 07-19-[address] [facility] Facility:[facility] Start: 01-25-2023 End: 01-26-2023 Emergency department patient visit Ephraim Zamora Facility:[facility] Procedures Date Procedure Procedure Detail Performing Clinician Start: 01-01-2025 Estimated creatinine clearance No Primary Care Physician Start: 01-01-2025 Urnls dip stick/tabl et reagent auto microscopy No Primary Care Physician Start: 01-01-2025 US scan of gallbladder No Primary Care Physician Start: 07-19-2023 Radex ankle complete minimum 3 views Rui Zambrano RECORD MAKER.ASSISTANT PROJECT ENGINEER Work Phone: H/O: vasectomy Status post vasectomy Milan Murillo MD Work Phone: Plan of Treatment Date Care Activity Detail Author Start: 11-15-2028 Urine microalbumin profile DTa P,Tdap,Td Vaccine (2 - Td or Tdap) [facility] Start: 01-01-2025 Hospital admission, emergency, from emergency room, medical nature [facility] Start: 01-01-2025 Ambulation without limitation [facility] Start: 01-01-2025 Following clinical p athway protocol [facility] Start: 01-01-2025 Vital signs measurements [facility] Start: 01-01-2025 [facility] Start: 01-01-2025 Admission procedure [facility] Start: 05-12-2024 End: 08-11-2024 BASIC SEMEN ANALYSIS BASIC SEMEN ANALYSIS Andrology Routine Status post vasectomy Expected: 05/12/2024 (Approximate), Expires: 08/11/2024 [facility] Work Phone: Comment on above: Expected: 05/12/2024 (Approximate), Expires: 08/11/2024 Start: 03-12-2024 Covid-19 Vaccine ( season) Covid-19 Vaccine () [facility] Start: 03-12-2024 Covid-19 Vaccine ( season) Covid-19 Vaccine ( season) [facility] Start: 03-12-2024 Influenza vaccination Influenz a Vaccine (#1) [facility] Start: 02-10-2024 End: 02-10-2024 Patient encounter procedure 02/10/2024 1:30 PM EDT Office Visit Urology [address] [place] [address] Starr Murillo MD [address] [address] Vasectomy evaluation [Z30.09 (ICD-10-CM)] Urology Comment on above: Vasectomy evaluation [Z30.09 (ICD-10-CM)] Start: 02-07-2024 End: 02-07-2024 Patient encounter procedure Urology Comment on above: Vasectomy procedure Vasectomy procedures not done in [facility] Office. Start: 07-12-2023 Behavioral Health Screening Be havioral Health Screening [facility] Start: 03-12-2023 Covid-19 Vaccine ( season) Covid-19 Vaccine ( season) [facility] Start: 2010 Hepatitis B Vaccine (1 of 3 - 19+ 3-dose series) Hepatitis B Vaccine (1 of 3 - 19+ 3-dose series) [facility] Start: 2009 Anxiety Screening Anxiety Screening [facility] Start: 2009 Depression Screening Depression Scre ening [facility] Start: 2009 Hepatitis C screening Hepatiti s C Screening [facility] Start: 2009 HIV screening HIV Screening [facility] Alanine aminotransfe rase [Enzymatic activity/volume] in Serum or Plasma [facility] Albumin [Mass/volume ] in Serum or Plasma [facility] Alkaline phosphatase [Enzymatic activity/volume] in Serum or Plasma [facility] Anion gap in Serum o r Plasma [facility] Bilirubin, total measurement [facility] BUN/Creatinine ratio [facility] Calcium [Mass/volume ] in Serum or Plasma [facility] Carbon dioxide, tota l [Moles/volume] in Central venous blood [facility] Creatinine [Mass/vol ume] in Serum or Plasma [facility] Erythrocyte mean corpuscular volume determination [facility] Glucose [Mass/volume ] in Serum or Plasma [facility] Hematocrit [Volume Fraction] of Blood [facility] Hemoglobin [Mass/vol ume] in Blood [facility] Leukocytes [#/volume ] in Blood [facility] Mean corpuscular hem oglobin concentration determination [facility] Mean corpuscular hem oglobin determination [facility] Measurement of renal function [facility] Neutrophil count [facility] Neutrophil percent differential count [facility] Patient referral [facility] Work Phone: Platelets [#/volume] in Blood [facility] Potassium measurement [facility] Red blood cell count [facility] Red cell distributio n width determination [facility] Serum chloride measurement [facility] Sodium measurement [facility] Total protein measurement [facility] Urea nitrogen [Mass/ volume] in Serum or Plasma [facility] Vasectomy uni/bi spx w/postop semen exams VASECTOMY Procedures Routine Vasectomy evaluation Ordered: 01/11/2024 [facility] Work Phone: Comment on above: Ordered: 01/11/2024 [facility] Immunizations Immunization Date Immunization Notes Care Provider Jannie mercedes 05-11-2019 influenza virus vacc ine, unspecified formulation Gabo Srivastava PA-C Work Phone: [facility] Payers Date Payer Category Payer Self-pay 2020 Unknown [employer] PPO [id number] 2020-Present [phone] [address] [place] [address] PPO [id number] 2020 Unknown [id number] Unknown [id number] Unknown [employer] [id number] Social History Date Type Detail Facility Start: 01-11-2024 End: 01-01-2025 Tobacco smoking status NHIS Never smoked tobacco [facility] Start: 01-11-2024 Tobacco use and exposure Smokeless tobacco non-user [facility] Start: 01-11-2024 End: 02-10-2024 Alcohol intake Current drinker of alcohol (finding) [facility] Start: 08-09-2023 End: 01-11-2024 Alcohol intake [facility] Start: 08-09-2023 End: 01-11-2024 Tobacco use panel [facility] National Score (1-10 0), lower number is lower risk 69 [facility] Start: 08-09-2023 Alcohol Comment social [facility] Start: 1990 Sex Assigned At Not on file [facility] Start: 07-19-2023 Alcoholic beverage intake Current non-drinker of alcohol (finding) [facility] Start: 1990 Sex Assigned At Male [facility] Clinical Notes 07-19-2023 to 01-01-2025 Telephone Encounter - Cori Thomas LPN - 05/12/2024 12:55 PM EDTTelephone Encounter - Cori ThomasKENRICK - 05/12/2024 12:55 PM EDTBStarr alvarado MD - 02/10/2024 2:06 PM EDT Note Date & Type Note Facility 01-01-2025 History and physi malathi note [facility] 01-01-2025 Radiology Diagnostic study note [facility] Imaging Services [address] [place], [place] [id number] Gallbladder MR#: [id number] Acct: [id number] Name: VICKI MATTHEWS Rep #: [id number] : 1990 M 34 From: Aga Nugent MD PCP: Care Physician,No Primary Status: REG ER Study:Gallbladder Date of Exam: 01/01/25 Exam# [id number] Ordering Dr: Ephraim Zamora DO PROCEDURE: GALLBLADDER 01/01/2025 REASON FOR EXAM: PAIN COMPARISON: None FINDINGS: Liver: Mildly enlarged measuring 19.1 cm longitudinally. Isoechoic to the rightkidney. Gallbladder: There are echogenic shadowing stones and layering sludge, with normal wall thickness of 2 mm. There are tiny avascular anechoic spaces within a hyperechoic background adjacent to the gallbladder, possibly trace pericholecystic fluid or adenomyomatosis. Sonographic Curtis's sign is negative per technologist report. Common bile duct: Normal measuring 3 mm. Pancreas: Visualized portions are sonographically unremarkable. Other: Visualized portions of the right kidney are unremarkable, with the right kidney measuring 10.7 x 4.8 x 4.9 cm and with cortex measuring 1.1 cm. No right upper quadrant ascites. US/Gallbladder IMPRESSION: 1. Cholelithiasis and biliary sludge, with equivocal findings for acute cholecystitis. Consider Surgical consultation and nuclear medicine scan if there is heightened clinical concern. 2. Mild hepatomegaly. Reading Location: [id number] CC: Dr. Ephraim Zamora DO; No Primary Care Physician ~ Automation Tender: Signed [facility] 05-12-2024 Telephone encounter Note Spoke with patient and advised him that his sperm sample was good nothing was seen. Cori Thomas LPN [facility] 05-12-2024 Miscellaneous Notes Spoke with patient and advised him that his sperm sample was good nothing was seen. Cori Thomas LPN documented in this encounter [facility] 02-10-2024 Note HNO ID: [id number] Author: STARR MURILLO MD Service: ? Author Type: Physician Type: Procedures Filed: 02/10/2024 14:07 Note Text: 02/10/2024 UNIVERSAL PROTOCOL / SAFETY CHECKLIST Procedure to be Performed: vas Sign In: A Moment of CARE was completed. Personnel directly involved with the procedure wore the appropriate PPE (Personal Protective Equipment). Patient/Surrogate Stated/Verified: Time Out Communication: Intended patient and procedure match the source documents. Consent documented and matches the intended procedure. Sign Out: SIGN OUT (optional for EMERGENT procedures): No specimen collected. Starr Murillo MD HPI: 33 year old male reports for vasectomy. He again confirms he desires permanent sterilization and has no desire to father children in the future. Procedure: Vasectomy Anatomic Site: Vas Deferens Approach: Percutaneous Device: None Qualifier: None PMHx/PSHx: see above, otherwise unchanged Rx: No scheduled NSAIDs or blood thinner for past 5 days. ROS: No new or inguinal complaints Labs: None Imaging: None PE: General: Well masculinized, well nourished male Psych: euthymic, NAD Neuro: AANDOx3 exam: see below. Procedure: Vasectomy Patient?s identity was confirmed, written informed consent was obtained, and the time out performed before the procedure was initiated The patient was placed in a supine position and the genitalia were prepped and draped in a sterile manner. Examination revealed no scrotal lesions, descended testicles bilaterally without masses and readily palpable vasa deferens. The right scrotal skin and cord structures was anesthetized with 5 cc of 2% lidocaine without epinephrine. A No-scapel technique was used to isolated and remove a small portion of the vas deferens. The vas sheath was opened. The vas deferens was clamped and ligated. The inner lumina of the testicular and abdominal ends of the vas were cauterized. Clips were applied to the testicular end of the vas and to the abdominal end. Adequate hemostasis was achieved. Both ends of the vas deferens were delivered back into the scrotum by fascia.The procedure was repeated on the patient?s left side. The patient tolerated the procedure well. Postoperative care, limitations, and expectations were reviewed with the patient. He was again instructed to use an alternate form of control until he is notified that his postprocedure semen analysis reveals no sperm. Imp: S/p vasectomy Plan: Supply Semen sample for analysis in 3 months Follow up as needed Starr Murillo MD [facility] 02-10-2024 Procedure note 02/10/2024 UNIVERSAL PROTOCOL / SAFETY CHECKLIST Procedure to be Performed: vas Sign In: A Moment of CARE was completed. Personnel directly involved with the procedure wore the appropriate PPE (Personal Protective Equipment). Patient/Surrogate Stated/Verified: Time Out Communication: Intended patient and procedure match the source documents. Consent documented and matches the intended procedure. Sign Out: SIGN OUT (optional for EMERGENT procedures): No specimen collected. Starr Murillo MD HPI: 33 year old male reports for vasectomy. He again confirms he desires permanent sterilization and has no desire to father children in the future. Procedure: Vasectomy Anatomic Site: Vas Deferens Approach: Percutaneous Device: None Qualifier: None PMHx/PSHx: see above, otherwise unchanged Rx: No scheduled NSAIDs or blood thinner for past 5 days. ROS: No new or inguinal complaints Labs: None Imaging: None PE: General: Well masculinized, well nourished male Psych: euthymic, NAD Neuro: A&Ox3 exam: see below. Procedure: Vasectomy Patient s identity was confirmed, written informed consent was obtained, and the time out performed before the procedure was initiated The patient was placed in a supine position and the genitalia were prepped and draped in a sterile manner. Examination revealed no scrotal lesions, descended testicles bilaterally without masses and readily palpable vasa deferens. The right scrotal skin and cord structures was anesthetized with 5 cc of 2% lidocaine without epinephrine. A No-scapel technique was used to isolated and remove a small portion of the vas deferens. The vas sheath was opened. The vas deferens was clamped and ligated. The inner lumina of the testicular and abdominal ends of the vas were cauterized. Clips were applied to the testicular end of the vas and to the abdominal end. Adequate hemostasis was achieved. Both ends of the vas deferens were delivered back into the scrotum by fascia.The procedure was repeated on the patient s left side. The patient tolerated the procedure well. Postoperative care, limitations, and expectations were reviewed with the patient. He was again instructed to use an alternate form of control until he is notified that his postprocedure semen analysis reveals no sperm. Imp: S/p vasectomy Plan: Supply Semen sample for analysis in 3 months Follow up as needed Starr Murillo MD T [facility] 02-10-2024 Procedure note 02/10/2024 UNIVERSAL PROTOCOL / SAFETY CHECKLIST Procedure to be Performed: vas Sign In: A Moment of CARE was completed. Personnel directly involved with the procedure wore the appropriate PPE (Personal Protective Equipment). Patient/Surrogate Stated/Verified: Time Out Communication: Intended patient and procedure match the source documents. Consent documented and matches the intended procedure. Sign Out: SIGN OUT (optional for EMERGENT procedures): No specimen collected. Starr Murillo MD HPI: 33 year old male reports for vasectomy. He again confirms he desires permanent sterilization and has no desire to father children in the future. Procedure: Vasectomy Anatomic Site: Vas Deferens Approach: Percutaneous Device: None Qualifier: None PMHx/PSHx: see above, otherwise unchanged Rx: No scheduled NSAIDs or blood thinner for past 5 days. ROS: No new or inguinal complaints Labs: None Imaging: None PE: General: Well masculinized, well nourished male Psych: euthymic, NAD Neuro: A&Ox3 exam: see below. Procedure: Vasectomy Patient s identity was confirmed, written informed consent was obtained, and the time out performed before the procedure was initiated The patient was placed in a supine position and the genitalia were prepped and draped in a sterile manner. Examination revealed no scrotal lesions, descended testicles bilaterally without masses and readily palpable vasa deferens. The right scrotal skin and cord structures was anesthetized with 5 cc of 2% lidocaine without epinephrine. A No-scapel technique was used to isolated and remove a small portion of the vas deferens. The vas sheath was opened. The vas deferens was clamped and ligated. The inner lumina of the testicular and abdominal ends of the vas were cauterized. Clips were applied to the testicular end of the vas and to the abdominal end. Adequate hemostasis was achieved. Both ends of the vas deferens were delivered back into the scrotum by fascia.The procedure was repeated on the patient s left side. The patient tolerated the procedure well. Postoperative care, limitations, and expectations were reviewed with the patient. He was again instructed to use an alternate form of control until he is notified that his postprocedure semen analysis reveals no sperm. Imp: S/p vasectomy Plan: Supply Semen sample for analysis in 3 months Follow up as needed Starr Murillo MD documented in this encounter [facility] 02-07-2024 Telephone encounter Note This patient saw another provider for a vasectomy consult. No medications were given. Can you please sign the attached order so I can call him tomorrow. His weight was 196lb. Do you want to give 1 or 2 Halcion. Please update pended order if you want to give 2 of them. Cori Romero LPN [facility] 02-07-2024 Miscellaneous Notes This patient saw another provider for a vasectomy consult. No medications were given. Can you please sign the attached order so I can call him tomorrow. His weight was 196lb. Do you want to give 1 or 2 Halcion. Please update pended order if you want to give 2 of them. Cori Romero LPN documented in this encounter [facility] 01-24-2024 Telephone encounter Note Pts vasectomy appt was made in the [facility] office in error. It needs scheduled, [facility] Central scheduling [phone]. Pt needs to call Central Scheduling directly to schedule his procedure. LVM for Pt to call the office to get appt rescheduling instructions. Yodit Healy [facility] 01-24-2024 Miscellaneous Notes Pts vasectomy appt was made in the [facility] office in error. It needs scheduled, [facility] scheduling [phone]. Pt needs to call Central Scheduling directly to schedule his procedure. LVM for Pt to call the office to get appt rescheduling instructions. Yodit Healy documented in this encounter [facility] 01-21-2024 Telephone encounter Note 01/20 lm for pt to call back and get rescheduled. [facility] 01-21-2024 Miscellaneous Notes 01/20 lm for pt to call back and get rescheduled. Pt scheduled as in office vasectomy at [facility] 02/06 , cannot be performed at [facility]. Please advise him of this. Also let him know that I can perform for him in OR at [facility], I just need to see him first, or if he would prefer in office vasectomy at other location , please reschedule with other Urologist Lilibeth Bone DO documented in this encounter [facility] 01-21-2024 Telephone encounter Note Pt scheduled as in office vasectomy at [facility] 02/06 , cannot be performed at [facility]. Please advise him of this. Also let him know that I can perform for him in OR at [facility], I just need to see him first, or if he would prefer in office vasectomy at other location , please reschedule with other Urologist Lilibeth Bone DO [facility] Work Phone: 01-11-2024 Note HNO ID: [id number] Author: GABO SRIVASTAVA PA-C Service: ? Author Type: Physician Grant Writer Type: Progress Notes Filed: 01/11/2024 09:04 Note Text: Vicki Matthews January 11, 2024 Referred by: CC: Desires permanent sterilization HPI: 33 year old male states he desire permanent surgical sterilization. Reports fathering 3 children and expressly states he does not desire to father children in the future. Genitourinary history: Hx undescended testis: No Hx stone disease: No Hx UTI/prostatitis/epididimitis/STI: No Sexual frequency/libido: No Urinary sx: No Hematuria: No No family history on file. No past medical history on file. No past surgical history on file. Current Outpatient Medications Medication Sig MULTI-VITAMIN ORAL Take by mouth. No current facility-administered medications for this visit. Allergies: Penicillins Social History Tobacco Use Smoking status: Never Substance Use Topics Alcohol use: Yes Comment: social Drug use: No Occupation/exposures: None ROS: ENMT: No changes in hearing or vision, no nose bleeds or other nasal problems SKIN: Negative for lesions, rash, and itching. ENDOCRINE: Negative for cold or heat intolerance, polyuria, polydipsia and goiter. RESPIRATORY: Negative for cough, wheezing and shortness of breath CARDIOVASCULAR: Negative for chest pain, leg swelling and palpitations; Syncopal Episodes in the past GI: Negative for abdominal discomfort, blood in stools or black stools : Negative for dysuria, frequency and incontinence MUSCULOSKELETAL: Negative for joint pain or swelling, back pain, and muscle pain. PSYCH: Negative for sleep disturbance, mood disorder and recent psychosocial stressors. NEURO: Negative All other systems reviewed and are negative. Physical Exam: There were no vitals taken for this visit. General appearance: cooperative, pleasant, no acute distress, alert and oriented, well hydrated, well nourished male. Genitourinary: Scrotum: non-tender, non-erythematous, no lesions Testes: descended bilaterally, non-tender,nl size bilaterally, no intratesticular masses bilaterally. Epididymes: Intact bilaterally, non-tender, no masses, palpable vas bilaterally. Penis: non-tender, NL phallus, no lesions, circumcision Yes, NL meatus, no identifiable peyronie's plaque. Assessment: 33 year old male desires vasectomy. The patient attests that he watched and understood the [facility] Vasectomy video and read and understood the No-Scalpel Vasectomy pamphlet. He was instructed to stop all NSAIDs, aspirin and other blood thinners 5 days prior to the vasectomy. He was instructed to shave entire front of scrotum to the base of the penis the morning of the vasectomy. Postprocedure care, expectations, and limitations were discussed. He voiced understanding of these instructions and stated his questions were answered. Plan: 1) Proceed to vasectomy scheduling I personally counseled this patient about the following and he voiced understanding: a) Vasectomy is a permanent and irreversible form of sterilization b) 1:1,000 rate of recanalization which can results in the return of sperm into the ejaculate after vasectomy c) Patient must use alternative form of control until he is notified that his postprocedure semen analysis contained no sperm. Consultation requested by Self for an opinion regarding vasectomy and my final recommendations will be communicated back to the requesting physician by way of shared Medical record or letter via [place] mail. Visit duration 30 minutes with approximately 50% of time in counseling Gabo Srivastava, LIA, MT, PA-C [facility] 01-11-2024 History of Present illness Narrative Vicki Matthews January 11, 2024 Referred by: CC: Desires permanent sterilization HPI: 33 year old male states he desire permanent surgical sterilization. Reports fathering 3 children and expressly states he does not desire to father children in the future. Genitourinary history: Hx undescended testis: No Hx stone disease: No Hx UTI/prostatitis/epididimitis/STI: No Sexual frequency/libido: No Urinary sx: No Hematuria: No No family history on file. No past medical history on file. No past surgical history on file. Current Outpatient Medications Medication Sig MULTI-VITAMIN ORAL Take by mouth. No current facility-administered medications for this visit. Allergies: Penicillins Social History Tobacco Use Smoking status: Never Substance Use Topics Alcohol use: Yes Comment: social Drug use: No Occupation/exposures: None ROS: ENMT: No changes in hearing or vision, no nose bleeds or other nasal problems SKIN: Negative for lesions, rash, and itching. ENDOCRINE: Negative for cold or heat intolerance, polyuria, polydipsia and goiter. RESPIRATORY: Negative for cough, wheezing and shortness of breath CARDIOVASCULAR: Negative for chest pain, leg swelling and palpitations; Syncopal Episodes in the past GI: Negative for abdominal discomfort, blood in stools or black stools : Negative for dysuria, frequency and incontinence MUSCULOSKELETAL: Negative for joint pain or swelling, back pain, and muscle pain. PSYCH: Negative for sleep disturbance, mood disorder and recent psychosocial stressors. NEURO: Negative All other systems reviewed and are negative. Physical Exam: There were no vitals taken for this visit. General appearance: cooperative, pleasant, no acute distress, alert and oriented, well hydrated, well nourished male. Genitourinary: Scrotum: non-tender, non-erythematous, no lesions Testes: descended bilaterally, non-tender,nl size bilaterally, no intratesticular masses bilaterally. Epididymes: Intact bilaterally, non-tender, no masses, palpable vas bilaterally. Penis: non-tender, NL phallus, no lesions, circumcision Yes, NL meatus, no identifiable peyronie's plaque. Assessment: 33 year old male desires vasectomy. The patient attests that he watched and understood the AUA Vasectomy video and read and understood the No-Scalpel Vasectomy pamphlet. He was instructed to stop all NSAIDs, aspirin and other blood thinners 5 days prior to the vasectomy. He was instructed to shave entire front of scrotum to the base of the penis the morning of the vasectomy. Postprocedure care, expectations, and limitations were discussed. He voiced understanding of these instructions and stated his questions were answered. Plan: 1) Proceed to vasectomy scheduling I personally counseled this patient about the following and he voiced understanding: a) Vasectomy is a permanent and irreversible form of sterilization b) 1:1,000 rate of recanalization which can results in the return of sperm into the ejaculate after vasectomy c) Patient must use alternative form of control until he is notified that his postprocedure semen analysis contained no sperm. Consultation requested by Self for an opinion regarding vasectomy and my final recommendations will be communicated back to the requesting physician by way of shared Medical record or letter via [place] mail. Visit duration 30 minutes with approximately 50% of time in counseling LIA Mitchell MT, PA-C documented in this encounter [facility] 08-09-2023 Note HNO ID: [id number] Author: DAYAN BECERRA, ? Service: ? Author Type: Physician Type: Progress Notes Filed: 08/09/2023 09:03 Note Text: Consultation requested by Dr. Zambrano for an opinion regarding ankle sprain. My final recommendations will be communicated back to the requesting physician by way of shared Medical record or letter to requesting physician via [place] mail. Initial Podiatric Office Visit: Chief Complaint: This 33 year old male who presents with chief complaint:right ankle pain HPI Patient presents to clinic for evaluation of right ankle. Patient states that back in the late Fall (just before thanksgi), he rolled his right foot on a tree stump. He treated with ice and elevation and the pain eventually resolved He states that back in June, he rolled his right ankle a subsequent time. He states that if he moves his foot in and out, he has pain. He states his ankle is very unstable. He likes to run and wants to get his ankle in better shape before he resumes running. PAIN EVALUATION 08/09/2023 0820 Pain Level: 2 Pain Location: Ankle-Right Description: Sharp;Sore Duration Amount of Time: 3 Duration Units: Months Frequency: Intermittent Intervention/Comfort measure: Reposition;Relaxation No results found for: HBA1C PCP: No primary care provider on file. No past medical history on file. Current Outpatient Medications Medication Sig MULTI-VITAMIN ORAL Take by mouth. No current facility-administered medications for this visit. ALLERGIES Allergen Reactions Penicillins Rash No past surgical history on file. No family history on file. Social History Tobacco Use Smoking status: Never Substance Use Topics Alcohol use: Yes Comment: social Drug use: No REVIEW OF SYSTEMS GENERAL: Negative for Malaise, significant weight loss, fever RESPIRATORY: Negative for cough, wheezing and shortness of breath CARDIOVASCULAR: Negative for chest pain, leg swelling and palpitations GI: Negative for abdominal discomfort, blood in stools or black stools and change in bowel habits : Negative for dysuria, frequency and incontinence MUSCULOSKELETAL: Negative for joint pain or swelling, back pain, and muscle pain. SKIN: Negative for lesions, rash, and itching. HEMATOLOGY/LYMPHOLOGY Negative for prolonged bleeding, bruising easily, and swollen nodes. ENDOCRINE: Negative for cold or heat intolerance, polyuria, polydipsia and goiter. NEURO: negative Physical Exam: Constitutional: Pt is a well developed 33 year old male who is alert, oriented and cooperative Eyes: Following during examination. No redness or drainage. Respiratory: RR normal and nonlabored. Even breathing. No evidence of distress or shortness of breath. Psychology: Patient is engaged during conversation. Normal affect and mood. Does not appear depressed or anxious during encounter. Vascular: Dorsalis pedis and posterior tibial pulses palpable as b/l Capillary Fill time < 5 seconds to digits 1-5 b/l Skin temperature warm to warm proximal to distal b/l Hair growth present to digits Neurological: intact light touch/epicritic sensation b/l intact protective sensation no significant neurological deficits Dermatological: Right 2nd toenail is dystrophic. Webspaces clean and dry 1-4 b/l. Skin appears well hydrated and supple. good color, texture, turgor. No open lesions present. No callosities present. Questionable areas of wart vs rubbing on b/l great toes.. Musculoskeletal/Orthopaedic: Patient has pain to palpation of right atfl No laxity with anterior drawer Foot type is neutral structurally AJ ROM is full with knee extended and flexed 1st MPJ is full when loaded and no pain or crepitus are noted with ROM. MTJ, STJ are full and free of pain and crepitus. +5/5 muscle strength dorsiflexion, plantarflexion, inversion, eversion b/l Radiographs: 3 views right ankle reviewed August 09, 2023: I have personally reviewed and interpreted these XR myself: no acute fracture ASSESSMENT: (S93.401A) Sprain of right ankle, unspecified ligament, initial encounter (primary encounter diagnosis) (M25.571) Acute right ankle pain PLAN: 1. History and physical examination performed. 2. XR reviewed with patient and interpreted today 3. Discussed ankle instability. Offered bracing and referral to therapy. He declined bracing. Also demonstrated home activity. If condition fails to improve or he continues to demonstrate ankle sprain/instability, recommend mri 4. Discussed possible wart of b/l hallux. Recommend he make an appointment with derm 5. Discussed dystrophic toenail. Likely from trauma. If this bothers him in the future, consider removal, otherwise, keep cut as needed Dayan Becerra DPM Podiatry [address] [facility] [id number] Dept: [phone] Dept [facility] 08-09-2023 Note HNO ID: [id number] Author: RHONDA HUERTA LPN Service: ? Author Type: LICENSED NURSE Type: Progress Notes Filed: 08/09/2023 09:03 Note Text: AMB ROOMING INTAKE FLOWSHEET DATA Pain Pain Level: 2 Pain Location: Ankle-Right Description: Sharp, Sore Duration Amount of Time: 3 Duration Units: Months Frequency: Intermittent Intervention/Comfort measure: Reposition, Relaxation Patient presents with: Right Ankle - New, Pain Rhonda Huerta LPN [facility] 07-19-2023 History of Present illness Narrative Radiology Service Progress Note PATIENT NAME: Vicki Matthews DATE OF SERVICE: July 19, 2023 TIME: 11:03 AM PATIENT IDENTITY VERIFICATION COMPLETED USING TWO (2) IDENTIFIERS: Name and Date of confirmed by patient verbally. FALL SCREENING: Has the patient had 2 falls in the last year or 1 fall with injury or currently using an Ambulatory Assistive Device (Walker, Cane, Wheelchair, Crutches, etc.)? No PATIENT GENDER DATA: Male PATIENT RELEVANT IMPLANT DATA REVIEWED: Yes RADIOLOGY DEPARTMENT: General X-ray: Exam(s) Completed: Lower Extremity X-Ray(s): Ankle, Right and Wt. Bearing PERIPHERAL IV DATA: Not applicable SIGNED BY: RT Jeremías(R) July 19, 2023 11:03 AM documented in this encounter [facility] 07-19-2023 Note HNO ID: [id number] Author: SOHEILA HUNTER RT(R) Service: Radiology Author Type: Technologist Type: Progress Notes Filed: 07/19/2023 11:09 Note Text: Radiology Service Progress Note PATIENT NAME: Vicki Matthews DATE OF SERVICE: July 19, 2023 TIME: 11:03 AM PATIENT IDENTITY VERIFICATION COMPLETED USING TWO (2) IDENTIFIERS: Name and Date of confirmed by patient verbally. FALL SCREENING: Has the patient had 2 falls in the last year or 1 fall with injury or currently using an Ambulatory Assistive Device (Walker, Cane, Wheelchair, Crutches, etc.)? No PATIENT GENDER DATA: Male PATIENT RELEVANT IMPLANT DATA REVIEWED: Yes RADIOLOGY DEPARTMENT: General X-ray: Exam(s) Completed: Lower Extremity X-Ray(s): Ankle, Right and Wt. Bearing PERIPHERAL IV DATA: Not applicable SIGNED BY: RT Jeremías(R) July 19, 2023 11:03 AM [facility] 07-19-2023 Note HNO ID: [id number] Author: RUI ZAMBRANO APRN.ASSISTANT PROJECT ENGINEER Service: ? Author Type: Nurse Practitioner Type: Progress Notes Filed: 07/19/2023 11:48 Note Text: Subjective HPI Nontoxic-appearing male presents urgent care chief plaint right ankle injury. Duration of symptoms ongoing. States first twisted his ankle over Thanksgiving that has resolved almost completely and then really rolled his ankle again last night. Presents today due to persistent discomfort. Having a hard time bearing weight. No numbness no tingling. No decrease sensation. Denies any other injuries. Denies fractures or surgeries previously. Past medical history prescription medication use allergies reviewed. BP 130/86 Pulse 68 Temp (!) 35.8 ?C (96.4 ?F) Resp 21 Wt 92.9 kg (204 lb 12.8 oz) SpO2 99% .Patient presents with: Trauma: Rolled right ankle last night No past medical history on file. No past surgical history on file. ALLERGIES Penicillins MEDICATIONS No prescriptions on file. No family history on file. Social History Tobacco Use Smoking status: Never Substance Use Topics Alcohol use: No Drug use: No Review of Systems Constitutional: Negative for chills, fever and malaise/fatigue. HENT: Negative for congestion, ear discharge, ear pain, sinus pain and sore throat. Eyes: Negative for blurred vision, pain, discharge and redness. Respiratory: Negative for cough, hemoptysis, sputum production, shortness of breath, wheezing and stridor. Cardiovascular: Negative for chest pain. Gastrointestinal: Negative for abdominal pain, diarrhea, nausea and vomiting. Musculoskeletal: Positive for falls and joint pain. Negative for myalgias. Skin: Negative for itching and rash. Neurological: Negative for dizziness and headaches. Objective Physical Exam Constitutional: General: He is not in acute distress. Appearance: He is not toxic-appearing. HENT: Head: Normocephalic. Nose: Nose normal. Eyes: Pupils: Pupils are equal, round, and reactive to light. Cardiovascular: Rate and Rhythm: Normal rate. Pulmonary: Effort: Pulmonary effort is normal. No respiratory distress. Musculoskeletal: Cervical back: Normal range of motion. Right lower leg: Normal. Right ankle: No swelling, deformity, ecchymosis or lacerations. Tenderness present over the lateral malleolus. Normal range of motion. Right Achilles Tendon: No tenderness. Right foot: Normal. Comments: No erythema edema noted. Mild tenderness over the lateral malleolus. Neurovascular intact. No weaknesses or decreased range of motion. Skin: General: Skin is warm and dry. Neurological: General: No focal deficit present. Mental Status: He is alert. ASSESSMENT/PLAN: 1. Acute right ankle pain - ICD9: 719.47, 338.19, ICD10: M25.571 - XR ANKLE GENERAL 3V AP/LAT/OBL RIGHT - CONSULT TO ORTHOPAEDICS IMPRESSION: No acute radiographic abnormalities seen in the right ankle. No acute fractures noted on x-ray. No laxity in joint. Treat as ankle sprain. Follow-up orthopedic symptoms not improving in 10 to 14 days. Patient was educated on supportive therapies. Patient will follow up with primary care provider as needed. Patient was instructed to immediately proceed to emergency room for any new, worsening, or symptoms lasting longer than anticipated. The patient's clinical presentation is otherwise unremarkable at this time. Based on exam and clinical finding, the patient is stable for discharge. Plan of care was discussed with patient. Patient verbalizes understanding and agrees to plan of care. This note was generated using LectureTools software. It may contain errors in wording, punctuation, or spelling. Rui Zambrano APRN.[facility] Evaluation note Diagnosis Vasectomy evaluation- Primary Other general counseling and advice for contraceptive management documented in this encounter [facility] note* Diagnosis Vasectomy evaluation- Primary Other general counseling and advice for contraceptive management Status post vasectomy- Primary Vasectomy status Vasectomy evaluation Other general counseling and advice for contraceptive management documented in this encounter [facility] note* Diagnosis Status post vasectomy- Primary Vasectomy status Vasectomy evaluation Other general counseling and advice for contraceptive management Encounter for sterilization Sterilization documented in this encounter [facility] note* Diagnosis Acute right ankle pain documented in this encounter [facility] note* Diagnosis Onset Date Resolution Status Admit Date Abdominal pain, acute, right upper quadrant acute January 01, 2025 6:02pm Acute cholecystitis acute January 01, 2025 6:02pm Leukocytosis acute January 01, 2 025 6:02pm [facility] Work Phone: History and physical note Author Shiraz Guajardo [facility] Note Date/Time January 01, 2025 6:09 pm [facility] Medical Records Department [address] [place] [id number] H&P Exam - Surgical 01/01/25 1807 MR#: [id number] Acct: [id number] Name: VICKI MATTHEWS Rep #:[id number] : 1990 34 From: Shiraz solorzano MD PCP: Care Physician,No Primary Status :REG ER Location: ED HPI - General HPI Narrative VICKI MATTHEWS, is a 34 M who presents with right upper quadrant pain that started last night. The patient denies nausea or vomiting. He denies fevers orchills. He says the pain is in his right upper quadrant. Patient says the pain radiates to the back. [facility] Medical History Vasovagal episode Home Medications ?Medication ?Instructions ?Recorded ?Last Taken ?Type NK 01/25/23 Unknown History Allergy/AdvReac Type Severity Reaction Status Date / Time Penicillins Allergy Severe Hives Verified 01/01/25 14:57 Surgical History Hx of tonsillectomy Social History Smoking Status: Never smoker ROS Constitutional Constitutional: Denies anorexia, chills, fatigue or fever(s) Eyes Eyes: Denies blurry vision ENT HEENT: Denies abnormal hearing Cardiovascular Cardiovascular: Denies chest pain Respiratory/Chest Respiratory/Chest: Denies cough or dyspnea Gastrointestinal Gastrointestinal: Reports abdominal pain; Denies diarrhea, nausea or vomiting Genitourinary Genitourinary: Denies difficulty urinating Musculoskeletal Musculoskeletal: Denies abnormal gait Integumentary Integumentary: Denies jaundice or new lesions Neurologic Neurologic: Denies abnormal gait Psychiatric Psychiatric: Denies anxiety Vital Signs Vital Signs Vital Signs: 01/01/25 14:56 01/01/25 16:56 Temperature 98.1 F Temperature Source Temporal Pulse Rate 64 68 Respiratory Rate 14 18 Blood Pressure 143/85 H 136/82 H Blood Pressure Mean 104 100 Pulse Ox 98 100 Oxygen Delivery Method Room Air Room Air Weight Weight: 209 lb 7.026 oz Body Mass Index (BMI) 28.4 Physical Exam Const oriented x3 and no apparent distress Resp normal respiratory effort GI soft to palpation Palpation: tender RUQ Extremity normal to inspection Results Lab / Micro Data 01/01/25 16:15 01/01/25 16:15 Labs: Laboratory Results - last 24 hr 01/01/25 16:07: Urine Color Straw, Urine Clarity Clear, Urine pH 7.0, Ur Specific [place] 1.005, Urine Protein Negative, Urine Glucose (UA) Normal, UrineKetones 5 H, Urine Occult Blood Negative, Urine Nitrite Negative, Urine Bilirubin Negative, Urine Urobilinogen Normal, Ur Leukocyte Esterase Negative, Urine RBC 0 SEEN, Urine WBC 0 SEEN, Ur Squamous Epith Cells 0 SEEN, Urine Bacteria 0 SEEN, Urine Mucus 0 SEEN 01/01/25 16:15: WBC 12.8 H, RBC 5.30, Hgb 14.9, Hct 41.7, MCV 78.7 L, MCH 28.1, MCHC 35.7, RDW Std Deviation 37.1, RDW Coeff of Sean 13.0, Plt Count 280, MPV 9.5, Immature Gran % (Auto) 0.200, Neut % (Auto) 76.6 H, Lymph % (Auto) 15.7 L, Archuleta % (Auto) 7.0, Eos % (Auto) 0.2, Baso % (Auto) 0.3, Absolute Neuts (auto) 9.8 H, Absolute Lymphs (auto) 2.01, Nucleated RBC % 0, Sodium 136, Potassium 3.7, Chloride 101, Carbon Dioxide 22.6, Anion Gap 13, BUN 12, Creatinine 1.14, Estim Creat Clear Calc 110.23, Est GFR (MDRD) Non-Af 87, BUN/Creatinine Ratio 10.9, Glucose 100 H, Calcium 9.9, Total Bilirubin 1.16, AST 20, ALT 27, AlkalinePhosphatase 69, Total Protein 8.0, Albumin 4.7, Globulin 3.3, Albumin/Globulin Ratio 1.4, Lipase 24 Imaging Radiology Impression Gallbladder Ultrasound 01/01/25 15:56 IMPRESSION: 1. Cholelithiasis and biliary sludge, with equivocal findings for acute cholecystitis. Consider Surgical consultation and nuclear medicine scan if there is heightened clinical concern. 2. Mild hepatomegaly. Reading Location: [id number] Assessment & Plan Assessment/Plan (1) Acute cholecystitis: PLAN: The patient has sludge and stones in his gallbladder with elevated white count. This is consistent with acute cholecystitis. Plan to admit him on antibiotics and take him for laparoscopic cholecystectomy tomorrow. I discussedthe procedure in detail with the patient. I discussed the risks, benefits, and alternatives of the procedure. I discussed the risks including but not limited to bleeding, infection, injury to surrounding organs such as the liver, bile duct, bowels. I did discuss the possibility of having to convert to an open procedure as well as the possibility that if any injuries occurred this may necessitate further surgery at a tertiary care center. Shiraz Guajardo MD Pager: [facility] [address] [place] [address], [address] [place] [address] Office: 01/01/25 1807 <Electronically signed by Shiraz Guajardo MD> Cosigner Signature (if applicable): CC: Dr. Shiraz Guajardo MD; No Primary Care Physician~ Signed [facility] Work Phone: reason for referral (narrative)* Diagnostic Procedure Only (Urgent) - Closed Specialty Diagnoses / Procedures Referred By Contac t Referred To Contact XR IMAGING Diagnoses Acute right ankle pain Procedures XR ANKLE GENERAL 3V AP/LAT/OBL RIGHT RADEX ANKLE COMPLETE MINIMUM 3 VIEWS Rui Zambrano, RECORD MAKER.ASSISTANT PROJECT ENGINEER [address] [place] [address] [place] [address] Referral ID Status Reason Start Date Expiration Date V isits Requested Visits Authorized [id number] Closed Auto-Generate d Referral 07/19/2023 08/17/2024 [facility] for [facility] Work Phone: reason for visit Narrative* Diagnostic Procedure Only (Urgent) - Closed Specialty Diagnoses / Procedures Referred By Contac t Referred To Contact XR IMAGING Diagnoses Acute right ankle pain Procedures XR ANKLE GENERAL 3V AP/LAT/OBL RIGHT RADEX ANKLE COMPLETE MINIMUM 3 VIEWS Rui Zambrano, RECORD MAKER.ASSISTANT PROJECT ENGINEER [address] [place] [address] [place] [address] Referral ID Status Reason Start Date Expiration Date V isits Requested Visits Authorized [id number] Closed Auto-Generate d Referral 07/19/2023 08/17/2024 1 1 [facility] Summary Purpose Family History No Family History Records FoundNo Family History Records FoundNo Family History Records FoundNo Family History Records FoundNo Family History Records Found Advance Directives Advance Directive Response Recorded Date/ Time Do you have a Healthcare Power of Manager Enrollment? No January 01, 2025 4:13pm Chief Complaint and Reason for Visit Chief Complaint Admit Date ACUTE CHOLECYSTITIS January 01, 2025 6:02 pm GALLBLADDER January 01, 2025 6:07 pm Reason for Visit Admit Date Abdominal pain, acute, right upper quadr ant January 01, 2025 6:02pm Acute cholecystitis January 01, 2025 6:02 pm Leukocytosis January 01, 2025 6:02 pm Additional Source Comments (unrecognized sect ion and content) No Status Records FoundNo Status Records FoundNo Status Records FoundNo Status Records FoundNo Status Records Found INFORMATION SOURCE (unrecogn ized section and content) DATE CREATED AUTHOR 01/26/2023 [facility] DATE CREATED AUTHOR AUTHOR'S ORGANIZ ATION 01/12/2024 [facility] DATE CREATED AUTHOR AUTHOR'S ORGANIZ ATION 02/03/2024 [facility] DATE CREATED AUTHOR AUTHOR'S ORGANIZ ATION 02/19/2024 [facility] DATE CREATED AUTHOR AUTHOR'S ORGANIZ ATION 05/14/2024 [facility] nter Source Comments (unrecognize d section and content) In the event this informatio n is protected by the Federal Confidentiality of Alcohol and Drug Abuse Patient Records regulations: The Federal rules restrict any use of the information to criminally investigate or prosecute any alcohol or drug abuse patient.[facility] the event this information is protected by the Federal Confidentiality of Alcohol and Drug Abuse Patient Records regulations: The Federal rules restrict any use of the information to criminally investigate or prosecute any alcohol or drug abuse patient.[facility] the event this information is protected by the Federal Confidentiality of Alcohol and Drug Abuse Patient Records regulations: The Federal rules restrict any use of the information to criminally investigate or prosecute any alcohol or drug abuse patient.[facility] the event this information is protected by the Federal Confidentiality of Alcohol and Drug Abuse Patient Records regulations: The Federal rules restrict any use of the information to criminally investigate or prosecute any alcohol or drug abuse patient.[facility] the event this information is protected by the Federal Confidentiality of Alcohol and Drug Abuse Patient Records regulations: The Federal rules restrict any use of the information to criminally investigate or prosecute any alcohol or drug abuse patient.[facility] the event this information is protected by the Federal Confidentiality of Alcohol and Drug Abuse Patient Records regulations: The Federal rules restrict any use of the information to criminally investigate or prosecute any alcohol or drug abuse patient.[facility] the event this information is protected by the Federal Confidentiality of Alcohol and Drug Abuse Patient Records regulations: The Federal rules restrict any use of the information to criminally investigate or prosecute any alcohol or drug abuse patient.[facility] the event this information is protected by the Federal Confidentiality of Alcohol and Drug Abuse Patient Records regulations: The Federal rules restrict any use of the information to criminally investigate or prosecute any alcohol or drug abuse patient.[facility] Reason for Visit (unrecogniz ed section and content) Reason Comments Vasectomy-1 Reason Comments Appointment Reason Comments Orders Vasectomy medication Reason Comments Follow Up vasectomy Reason Comments Results Sperm sample results Care Teams (unrecognized sec tion and content) Team Status: Active Member Role Status Dates No Primary Care Physician Primary Care Provider Active Team Status: Active Member Role Status Dates No Primary Care Physician Primary Care Provider Active Start: January 01, 2025 Dr. Ephraim Zamora DO Referring Provider Active Start: January 01, 2025 Dr. Ephraim Zamora DO Emergency Provider Active Start: January 01, 2025 Dr. Shiraz Guajardo MD Admit Provider Active Start: January 01, 2025 Dr. Shiraz Guajardo MD Attending Provider Active Start: January 01, 2025 Team Status: Active Member Role Status Dates No Primary Care Physician Primary Care Provider Active Start: January 01, 2025 Dr. Ephraim Zamora DO Referring Provider Active Start: January 01, 2025 Dr. Ephraim Zamora DO Emergency Provider Active Start: January 01, 2025 Dr. Shiraz Guajardo MD Attending Provider Active Start: Leila 23rd, 2025 Goals (unrecognized section and content) Goals may be documented in a n alternate section FOR RECORDS PERTAINING TO PATIENTS WHO ARE OR HAVE BEEN ENROLLED IN A CHEMICAL DEPENDENCY/SUBSTANCEABUSE PROGRAM, SOME INFORMATION MAY BE OMITTED. This clinical summary was aggregated from multiple sources. Caution should be exercised in using it in the provision of clinical care. This summary normalizes information from multiple sources, and as a consequence, information in this document may materially change the coding, format and clinical context of patient data. In addition, data may be omitted in some cases. CLINICAL DECISIONS SHOULD BE BASED ON THE PRIMARY CLINICAL RECORDS. [facility] [employer] [facility]. provides no warranty or guarantee of the accuracy or completeness of information in this document.
[2025-01-02] VITALS (16 sets, daily range): BP systolic 115–149; BP diastolic 69–88; PULSE 69–97; RESP 16–20; TEMP 36.4–37.2; O2SAT 94–100; BMI 29.2
[2025-01-02] MEDS: metroNIDAZOLE 500 MG/100 ML BAG 100 MG IV ×3 (00:06→13:48)
--- NOTE | 2025-01-02 01:52 | EKG12_ITS ---
Test Reason : pre op Blood Pressure : */* mmHG Vent. Rate : 94 BPM Atrial Rate : 94 BPM P-R Int : 136 ms QRS Dur : 84 ms QT Int : 324 ms P-R-T Axes : 60 38 41 degrees QTcB Int : 405 ms Normal sinus rhythm Normal ECG When compared with ECG of 25-Jan-2023 21:05, Vent. rate has increased by 32 bpm Confirmed by NAA ROSS, CHANDLER ([id number]), sound editor MICHELE OREILLY ([id number]) on 01/02/2025 11:03:51 AM Referred By: Ephraim Zamora Confirmed By: CHANDLER PEREZ MD
[2025-01-02] MEDS: Acetaminophen 325 MG Tablet 650 MG PO (05:41)
[2025-01-02 06:31] LABS: Absolute Lymphocyte Count 2.23 X10^3/uL (0.83-4.51); Absolute Neutrophil Count 10.7 X10^3/uL (2.0-7.7); Basophil# 0.03 X10^3/uL; Basophil% 0.2 % (0-1); Eosinophil# 0.03 X10^3/uL; Eosinophils% 0.2 % (0-5); Hematocrit 39.6 % (40-54); Lymphocyte # 2.23 X10^3/ul (0.83-4.51); Lymphocyte % 15.3 % (19-41); Mean Corp Hgb Conc 35.4 g/dL (32-36); Mean Corpuscular Hgb 27.9 pg (27.0-32.0); Mean Corpuscular Volume 78.9 fL (80-94); Mean Platelet Vol. 10.1 fl (6.2-12.0); Monocyte# 1.47 X10^3/uL; Monocyte% 10.1 % (0-10); NRBC Flagged by Analyzer 0 % (0-5); Neutrophil # 10.73 X10^3/uL (2.7-7.7); Neutrophil % 73.9 % (47-70); Platelet Count 261 K/mm3 (150-450); RBC Distribution Width CV 12.9 % (11.6-14.6); RBC Distribution Width SD 36.8 fl (35.1-43.9); Red Blood Count 5.02 M/mm3 (4.6-6.2); White Blood Count 14.5 K/mm3 (4.4-11.0)
[2025-01-02 06:45] LABS: ALB/GLOB Ratio 1.5 RATIO (0.9-2.4); AST(SGOT) 19 U/L (<=37); Alanine Aminotransfer ALT/SGPT 20 U/L (<=46); Albumin, Serum 4.4 g/dL (3.5-5.0); Alkaline Phosphatase 63 U/L (40-129); Anion Gap 12 (5-15); BUN 9 mg/dL (4-19); BUN/Creat Ratio 7.9 RATIO (10-20); Calcium,Total 9.2 mg/dL (7.6-11.0); Carbon Dioxide 21.5 mmol/L (21.0-32.0); Chloride 104 mmol/L (98-108); Creatinine, Serum 1.09 mg/dL (0.70-1.20); EST Glomerular Filtration Rate 92 (>60); Estimated Creatinine Clearance 113.41 ml/min (50-250); Globulin 2.8 g/dL (2.2-4.2); Glucose 115 mg/dL (70-99); Potassium 3.8 mmol/L (3.3-5.1); Protein, Total 7.2 g/dL (5.9-8.4); Sodium Level 137 mmol/L (133-145); Total Bilirubin 1.35 mg/dL (0.00-1.30)
--- NOTE | 2025-01-02 07:15 | RAD_ITS ---
PROCEDURE: CHOLANGIOGRAM/ O R,INITIAL 01/02/2025 REASON FOR EXAM: LAP MISAEL WITH IOC TECHNIQUE: CHOLANGIOGRAM/ O R,INITIAL. Intraoperative fluoroscopic services provided. 8.2 seconds of fluoroscopy. 2.84 mGy. COMPARISON: None FINDINGS: Intraoperative cholangiogram was performed by the surgeon. The visualized intra and extrahepatic biliary ducts are unremarkable. There is free flow of contrast into the duodenum. RAD/Cholangiogram/ O R,Initial IMPRESSION: Unremarkable intraoperative cholangiogram. Reading Location: [id number]
--- NOTE | 2025-01-02 11:35 | PCM.PRE.AN2 ---
ASA Classification* ASA Classification ASA Classification: 2 Assessment & Plan Anesthesia* Anesthesia Assessment Anesthesia Assessment: Discussed sedation and/or anesthesia options, risks, benefits, and alternatives with patient/parents/legal guardian/POA. Questions invited. The patient/parents/legal guardian/POA seems to understand and agrees to proceed with anesthesia plan. Reviewed the physical assessment, medical history, allergy history and patient home medications list prior to surgery/procedure/anesthetic and documented any changes. Performed airway and anesthesia risk assessments. Anesthesia Type Anesthesia Type: General History Source History Obtained from:: Patient and Chart Anesthesia Focused Assessment* Temperature: 98.7 F Pulse Rate: 76 Blood Pressure: 115/76 Respiratory Rate: 16 Pulse Ox: 100 Oxygen Delivery Method: Room Air Airway Assessment Mouth opens: >3 cm Mallampati Score: III Teeth Condition: Intact Neck Range of motion (ROM): Full ROM Comment: Patient has a permanent lower retainer. Labs Anesthesia Preop lab: CBC WBC 14.5 K/mm3 (4.4-11.0) H 01/02/25 05:01/02/25 RBC 5.02 M/mm3 (4.6-6.2) 01/02/25 05:01/02/25 Hgb 14.0 g/dL (13.0-16.5) 01/02/25 05:01/02/25 Hct 39.6 % (40-54) L 01/02/25 05:01/02/25 Plt Count 261 K/mm3 (150-450) 01/02/25 05:01/02/25 CHEMISTRY Potassium 3.8 mmol/L (3.3-5.1) 01/02/25 05:01/02/25 Sodium 137 mmol/L (133-145) 01/02/25 05:01/02/25 BUN 9 mg/dL (4-19) 01/02/25 05:01/02/25 Creatinine 1.09 mg/dL (0.70-1.20) 01/02/25 05:01/02/25 Glucose 115 mg/dL (70-99) H 01/02/25 05:01/02/25 COAG Pre-Assessment Diagnosis/Proposed Procedure Planned Operative Procedure(s): Laparoscopic cholecystectomy. With cholangiograms. 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 When Was Last Pacemaker Check QUESTION #4 FULL TEXT: You/Your Family Experience fever (hyperthermia) with Anesthesia Last Oral Intake Last Oral intake: Last Oral Intake NPO since 00:00 01/02/25 10:42 Meds taken in AM with sips of No 01/02/25 10:42 water? Meds patient instructed to take am of surgery Any additional information?: Yes Meds taken in AM with sips of water?: Yes Meds patient instructed to take am of surgery: Acetaminophen. PONV PONV - crab butcher: PONV - crab butcher Female HX of Motion Sickness HX of N/V After Surgery Non-Smoker Duration of Surgery greater than 60 minutes Number of Risk Factors PONV Score Height & Weight Height & Weight: Anesthesia: Height & Weight Height 5 ft 10.87 in 01/02/25 10:42 Weight: 95 kg 01/02/25 10:42 Body Mass Index (BMI) 29.2 01/02/25 10:42 Respiratory Assessment Respiratory Assessment - crab butcher: Respiratory Tract Infection Hx - crab butcher Hx Respiratory Tract Infection No 01/02/25 05:12 STOP Sleep Apnea STOP Sleep Apnea - crab butcher: STOP Sleep Apnea - crab butcher Hx Hypertension No 01/01/25 20:02 Hx Sleep Apnea No 01/01/25 20:02 CPAP BIPAP Do you snore loudly (louder No 01/01/25 20:02 than talking or can be heard Do you often feel tired/ No 01/01/25 20:02 fatigued/ sleepy during daytime? Has anyone observed you stop No 01/01/25 20:02 breathing during sleep? STOP Results Negative 01/01/25 20:02 QUESTION #5 FULL TEXT : Do you snore loudly (louder than talking or can be heard through closed doors)? Tobacco Use History Tobacco Use History - crab butcher: Tobacco Use History - crab butcher Tobacco Use Smoking Status Never smoker 01/01/25 20:02 Hx Tobacco Use No 01/01/25 20:02 Years Smoking Packs Smoked per Day Smoking Cessation Date was within the last 15 years Hx Smoking Cessation Date Hx Smoking Cessation Counseling Hematologic Medial History Hematologic Hx - crab butcher: Hematologic Medical Hx - supervisor production Hx of Blood Transfusion No 01/01/25 20:02 Hx of Transfusion in last 3 No 01/01/25 20:02 Months Date of Last Transfusion (if within last 3 months) Ever experience any problems No 01/01/25 20:02 with transfusion(s)? Specify any problems Hx of Preganancy in last 3 N/A 01/01/25 20:02 Months Nurse Filling Out Transfusion AHINES 01/01/25 20:02 & Questions: Date: 01/01/25 01/01/25 20:02 Time: 20:03 01/01/25 20:02 Patient unable to answer at this time (ie. confused, unrespo /Reproduction History /Reproductive History - crab butcher: /Reproductive Hx- crab butcher Hx Now No 01/02/25 05:12 Gestational Age (in weeks): EDC: Hx Hx Para Hx Section SAB No 01/02/25 05:12 Active Medications Active Medications: Current Medications Generic Name Dose Route Start Last Admin Trade Name Freq PRN Reason Stop Dose Admin Acetaminophen 650 mg 01/01/25 18:02 01/02/25 05:41 Acetaminophen 325 Mg Tablet PO 650 mg Q4H PRN PRN Administration Pain 1-10 or Fever Sodium Chloride 1,000 mls @ 60 mls/hr 01/01/25 18:05 01/01/25 20:37 IV 60 mls/hr .[id number] KANE Administration Ciprofloxacin 400 mg in 200 mls @ 200 mls/hr 01/01/25 22:00 01/01/25 22:25 Cipro IV Infused Q12 KANE Infusion Metronidazole 500 mg in 100 mls @ 100 mls/hr 01/01/25 22:00 01/02/25 07:01 Flagyl IV Infused Q8 KANE Infusion Sodium Chloride 1,000 mls @ 15 mls/hr 01/02/25 11:30 IV .Q48H KANE Morphine Sulfate 2 - 4 mg 01/01/25 18:02 Morphine 2 Mg/Ml Syringe IV Q2H PRN PRN Pain Score 4-10 Ondansetron HCl 4 mg 01/01/25 18:02 Ondansetron 4 Mg/2 Ml Vial IV Q6H PRN PRN NAUSEA/VOMITING Sodium Chloride 10 - 40 ml 01/01/25 18:02 0.9% Saline Lock 10 Ml Syringe IV UD PRN SALINE FLUSH Sodium Chloride 10 - 40 ml 01/01/25 18:02 0.9% Saline Lock 10 Ml Syringe IV UD PRN SALINE FLUSH Sodium Chloride 10 - 40 ml 01/01/25 20:06 0.9% Saline Lock 10 Ml Syringe IV UD PRN SALINE FLUSH PFSH Medical History Vasovagal episode Home Medications ?Medication ?Instructions ?Recorded ?Last Taken ?Type NK 01/25/23 Unknown History Allergy/AdvReac Type Severity Reaction Status Date / Time Penicillins Allergy Severe Hives Verified 01/01/25 14:57 Family History no significant family his Surgical History Hx of tonsillectomy Social History Smoking Status: Never smoker Review of Systems (Anesthesia) ROS Narrative System reviewed and no additional complaints, except as documented.
[2025-01-02] MEDS: 0.9% Normal Saline (1000mL) 1,000 ML 15 ML IV (11:42)
[2025-01-02] MEDS: Ciprofloxacin 400 MG/200 ML BAG 200 MG IV (11:54)
[2025-01-02] MEDS: Bupiv/Epi 0.25% 30 ML Vial (13:26)
--- NOTE | 2025-01-02 13:30 | GALL_PTH ---
PATIENT: VICKI MATTHEWS LOC: [facility]3 U#:[id number] AGE/SX: 34/M ROOM: MS316 RE01/01/[address]: Dr. Shiraz Guajardo MD : 1990 BED: 1 DIS: 01/02/2025 SPEC #: [id number] RECD: 01/02/25 16:03 STATUS: LUCILLE BLANCOAlexis #: [id number] ANDREZ: 01/02/25 13:[address]: Shiraz Guajardo DEPT: SURGICAL PATHOLOGY RECD BY: Berny Simpson ENTERED: 01/03/25 09:32 SP TYPE: SHYAM CANO DR: Dr. Ephraim Zamora, DO No Primary Care Phys Tissues: A - Gallbladder, NOS Procedures: Surgery Specimen Level III HEADER OPERATION: Laparoscopic cholecystectomy with IOC PRE-OP DIAGNOSIS: Acute cholecystitis TISSUE SUBMITTED: A- Gallbladder MICROSCOPIC DIAGNOSIS A. Gallbladder, acute cholecystitis, cholecystectomy: - Acute cholecystitis, cholelithiasis. - Reactive pericystic lymph node x1. MICROSCOPIC DESCRIPTION Slides are reviewed. GROSS DESCRIPTION A. Received in formalin labeled with the patient's name and date of . Designated as gallbladder is a 8.4 x 3.8 x 3.0 cm navarrete-white, intact and fibrotic gallbladder with attached patent cystic duct (inked black, shaved). There is free-floating blood clot within the container. A 2.0 cm lymph node is present. Opening reveals hemorrhagic tenacious bile and a 2.6 cm bosselated cholelith. The mucosa is dark red-brown and granular with loosely adherent blood clot with a maximum wall thickness of 0.2 cm. Cholesterolosis is not present. Spectrographic Analyst sections are submitted in 2 cassettes. [place] 01/03/2025 CPT:19340
--- NOTE | 2025-01-02 13:47 | OP.PCM_ITS ---
Operative Report (Standard) Operative Information Date of Procedure: 01/02/25 Pre-Operative Diagnosis: Acute cholecystitis Post-Operative Diagnosis: Acute cholecystitis Surgery/Procedure Performed: Laparoscopic cholecystectomy with cholangiograms training and quality manager: Yes Speech Language Pathologist Assistant: Seferino Cheek Tasks completed by tourist information assistant: Opening & closing and Retracting Type of Anesthesia: General/Regional RN Documented Start/Stop Times: Operation Date: 01/02/25 13:30 Case Time Into Pre-Op 01/02/25 11:21 Out of Pre-Op 01/02/25 12:44 Anesthesia Start 01/02/25 12:46 Into Room 01/02/25 12:46 Procedure Start 01/02/25 13:01 Procedure Start Time: 13:01 Procedure Stop Time: 13:55 Select all DRAINS/GRAFTS/IMPLANTS that apply: None Estimated Blood Loss: 10 Specimen collected: Yes Description of specimen(s) removed: Gallbladder Description of surgery: After obtaining informed consent patient was brought back to the operating room. General anesthesia was induced. The abdomen was prepped and draped in usual sterile fashion. A small midline incision was made superior to the umbilicus and deepened to the level of fascia. The fascia was elevated and incised. Next the peritoneum was elevated and incised in the same fashion. Finger sweep was performed and the Ba trocar was placed into the abdomen. The balloon was inflated. The abdomen was inflated to 15 mmHg. Next a camera was introduced into the abdomen and the abdomen was inspected. Next under direct visualization three 5-mm ports were placed one subxiphoid and 2 subcostal. Next the gallbladder was elevated and retracted toward the right shoulder. The peritoneum was stripped from the gallbladder. The infundibulum was located and retracted laterally. Next the triangle of Calot was dissected and the cystic duct and cystic artery were identified. Cholangiograms were performed. The Stern clamp was used to clamp across the infundibulum and the catheter needle was inserted into the gallbladder. Under fluoroscopy contrast was instilled into the gallbladder and the common duct, cystic duct as well as proximal hepatic ducts were identified. There was good filling of the duodenum. There were no filling defects noted in the common bile duct. The clamp was removed as well as the needle and the infundibulum was grasped once more. Three hemolock clips were placed across the cystic duct. The cystic duct was then divided leaving 2 clips on the stump. The cystic artery was clipped and divided in the same fashion. The hook cautery was then used to take the gallbladder off of the gallbladder bed. Hemostasis was obtained using cautery and Hemoblast. Gallbladder fossa was irrigated and no active bleeding or bile leakage was noted. Next the camera was introduced in the subxiphoid port. An Endopouch bag was placed through the umbilical port and the gallbladder was placed into it. The gallbladder was then removed through the umbilical incision. The camera was then reinserted through the umbilical port. The gallbladder fossa was inspected once more and noted to be hemostatic with no leaking bile. The abdomen was suctioned dry. The 5 mm ports were removed under direct visualization. The umbilical port was then removed and the air was removed from the abdomen. Next using an 0 Vicryl suture the umbilical fascia was closed in a hljksg-to-glorn fashion. The umbilical port site was irrigated local anesthetic was administered to all the incisions. All the incisions were closed with interrupted subcuticular 4-0 Monocryl sutures followed by Steri-Strips and dressings. The patient was awoken and taken to PACU in stable condition. Surgical Findings: Inflamed gallbladder Complications Complications: No Admit VTE Documentation VTE Mechan Device Prophylaxis: SCD's
--- NOTE | 2025-01-02 13:48 | DCINST_ITS ---
Discharge Instructions Procedure Gallbladder Diet Discharge Diet: Light diet - advance as tolerated Activity Discharge Activity: May Not Drive (for 2-3 days or while taking narcotic pain medications.) and - (Do not drive, work heavy equipment or sign legal documents for 24 hours.) May shower in (days): 1 Lifting Restrictions: 20 lbs for 2 weeks Additional Activity Instructions:: Pain medication may cause nausea. You should typically eat light foods as you take your pain medications. Pain medication may also cause constipation. If this is a problem for you, please discuss with your doctor. Alternate ibuprofen and Tylenol for pain control, oxycodone for breakthrough pain Dressing / Incision Call your doctor if your incision/area has: Continuous Slow Oozing, Sudden Increased Bleeding, Increased Pain/ Swelling, Increased Redness and Foul Smelling Discharge Call your doctor if you observe: Fever of 101 or Higher Suture Line Care: Avoid Pulling/Pushing and Avoid Pinching/Bending Remove Dressing in: 2 days Additional Dressing/Incision Instructions:: Leave operative bandaids on for 2 days. When you remove dressing, leave Steri-Strips on until your follow-up appointment, or until the Steri-Strips fall off on their own. Follow Up Care Please Follow Up With: Shiraz Guajardo MD When: Please call to schedule 2 week follow up appointment. [phone] Test Results: Test results from this visit will be discussed in further detail at your follow- up appointment, if applicable. Discharge Plan Admission Admit Date/Time: 01/01/25 18:02 Attending Provider: Shiraz Guajardo Primary Care Provider: Care Physician,[facility] Discharge Orders/Prescriptions Prescriptions: New oxycodone 5 mg tablet 5 - 10 mg PO Q6H PRN (Reason: pain) 5 Days Qty: 14 0RF Referrals / Follow Up: Care Physician,[facility]igo Primary [Primary Care Provider] - Disposition Disposition (needs filled in before D/C Order can be placed): Home, Self Care
--- NOTE | 2025-01-02 14:10 | PCM.POST.ANE ---
Anesthesia: Postop Eval I Current Vital Signs Temperature: 97.7 F Pulse Rate: 75 Blood Pressure: 131/74 Respiratory Rate: 16 Pulse Ox: 100 Oxygen Delivery Method: Non-Rebreather Oxygen Flow Rate (L/min): 10 Assessment Airway patent: Yes Spontaneous unlabored respirations: Yes Mental status: Asleep nausea: No Vomiting: No Anesthesia Complication: No Fluid Hydration Crystalloid volume administer (ml): 1,500 Total IV fluid infused: 1,500 Progress Note Anesthesia document: Postop Eval 1 completed: Yes
--- NOTE | 2025-01-02 22:26 | POSTOPAN2_ITS ---
Anesthesia Postop Eval I Sum Postop Eval Completion status Anesthesia document: Postop Eval 1 completed: Yes Anesthesia Postop Eval I Summary Anesthesia Postop Eval I Summary: Anesthesia Postop Eval I: Assessment Summary Airway patent Yes 01/02/25 14:11 [email or web address] Spontaneous unlabored Yes 01/02/25 14:11 [email or web address] respirations Mental status Asleep 01/02/25 14:11 [email or web address] nausea No 01/02/25 14:11 [email or web address] Vomiting No 01/02/25 14:11 [email or web address] Anesthesia Postop Eval I: Fluid Summary Crystalloid volume administer 1,500 01/02/25 14:11 [email or web address] (ml) Colloids volume administered ( ml) Blood Product volume administered (ml) Total IV fluid infused 1,500 01/02/25 14:11 [email or web address] [email or web address] Anesthesia Postop Eval I: Summary Notes Anesthesia Complication No 01/02/25 14:11 [email or web address] Anesthesia Complication Comment: Post-operative progress note Anesthesia: Postop Eval II Evaluation Mental status: Awake and Calm Pain Level: 1 nausea: No Vomiting: No Complications Anesthesia Complication: No
--- NOTE | 2025-01-02 22:26 | PCM.POSTANE2 ---
Anesthesia Postop Eval I Sum Postop Eval Completion status Anesthesia document: Postop Eval 1 completed: Yes Anesthesia Postop Eval I Summary Anesthesia Postop Eval I Summary: Anesthesia Postop Eval I: Assessment Summary Airway patent Yes 01/02/25 14:11 SUPPLIER [email or web address] [email or web address] Spontaneous unlabored Yes 01/02/25 14:11 SUPPLIER [email or web address] [email or web address] respirations Mental status Asleep 01/02/25 14:11 SUPPLIER [email or web address] [email or web address] nausea No 01/02/25 14:11 SUPPLIER DIVERSITY [email or web address] Vomiting No 01/02/25 14:11 SUPPLIER [email or web address] [email or web address] Anesthesia Postop Eval I: Fluid Summary Crystalloid volume administer 1,500 01/02/25 14:11 SUPPLIER DIVERSITY [email or web address] (ml) Colloids volume administered ( ml) Blood Product volume administered (ml) Total IV fluid infused 1,500 01/02/25 14:11 SUPPLIER [email or web address] [email or web address] Anesthesia Postop Eval I: Summary Notes Anesthesia Complication No 01/02/25 14:11 SUPPLIER [email or web address] [email or web address] Anesthesia Complication Comment: Post-operative progress note Anesthesia: Postop Eval II Evaluation Mental status: Awake and Calm Pain Level: 1 nausea: No Vomiting: No Complications Anesthesia Complication: No
--- NOTE | 2025-01-03 07:35 | PCM.DC.SUM ---
Providers Date of Admission: 01/01/25 Primary Care Physician: No Primary Care Phys Reason For Visit: ACUTE CHOLECYSTITIS Diagnosis Discharge Diagnosis (1) Acute cholecystitis: Status: Acute Code(s): K81.0 - Acute cholecystitis Plan: The patient has sludge and stones in his gallbladder with elevated white count. This is consistent with acute cholecystitis. Plan to admit him on antibiotics and take him for laparoscopic cholecystectomy tomorrow. I discussed the procedure in detail with the patient. I discussed the risks, benefits, and alternatives of the procedure. I discussed the risks including but not limited to bleeding, infection, injury to surrounding organs such as the liver, bile duct, bowels. I did discuss the possibility of having to convert to an open procedure as well as the possibility that if any injuries occurred this may necessitate further surgery at a tertiary care center. Shiraz Guajardo MD Pager: [facility] [address] [place] [address], [address] [place] [address] Office: Medications at Discharge Home Medications oxycodone 5 mg tablet 5 - 10 mg (1 - 2 x 5 mg) PO Q6H PRN pain 5 days #14 tabs 01/02/25 Hospital Course Operations [email or web address] Summary of Care Provided Hospital Course: Patient was admitted and the following day had cholecystectomy. He tolerated the procedure well and was discharged home that day Weight / BMI Weight Weight: 209 lb 7.026 oz Body Mass Index (BMI) 29.2 ABG / Lab / Microbiology Data 01/02/25 05:33 01/02/25 05:33 Radiography Diagnostic Testing: Radiology Impression Cholangiogram 01/02/25 07:15 IMPRESSION: Unremarkable intraoperative cholangiogram. Reading Location: [id number] Instructions Discharge Diet: Light diet - advance as tolerated May shower in (days): 1 Additional Activity Instructions: Pain medication may cause nausea. You should typically eat light foods as you take your pain medications. Pain medication may also cause constipation. If this is a problem for you, please discuss with your doctor. Alternate ibuprofen and Tylenol for pain control, oxycodone for breakthrough pain Call your doctor if your incision/area has: Continuous Slow Oozing, Sudden Increased Bleeding, Increased Pain/ Swelling, Increased Redness and Foul Smelling Discharge Call your doctor if you observe: Fever of 101 or Higher Suture Line Care: Avoid Pulling/Pushing and Avoid Pinching/Bending Additional Dressing/Incision Instructions: Leave operative bandaids on for 2 days. When you remove dressing, leave Steri-Strips on until your follow-up appointment, or until the Steri-Strips fall off on their own. DC O2, CPAP, BIPAP Needs Home O2 Discharge instructions: No Please Follow Up With: Shiraz Guajardo MD When: Please call to schedule 2 week follow up appointment. [phone] Meaningful Use Info Meaningful Use Meaningful Use Diagnoses (Choose all that apply): None applicable Ischemic Stroke Statin Dosing Therapy Reference: STATIN DOSE THERAPY REFERENCE: * Patients > 75 years receive moderate or high dose statin therapy. * Patients 75 years or YOUNGER should receive HIGH intensity statin dose unless contraindicated. You will be required to document reason for non-treatment if statin daily dose does not meet guidelines. HIGH DOSE STATIN THERAPY DAILY Atorvastatin > than or = to 40 mg Rosuvastatin > than or = to 20 mg Amlodipine + Atorvastatin > than or = to 2.5/40 mg Ezetimibe + Simvastatin 10/80 mg Simvastatin 80mg Discharge Plan Admission Admit Date/Time: 01/01/25 18:02 Attending Provider: Shiraz Guajardo Primary Care Provider: Care ,[facility] Discharge Orders/Prescriptions Prescriptions: New oxycodone 5 mg tablet 5 - 10 mg PO Q6H PRN (Reason: pain) 5 Days Qty: 14 0RF Referrals / Follow Up: Care Physician,[facility] Primary [Primary Care Provider] - Disposition Disposition (needs filled in before D/C Order can be placed): Home, Self Care
== END 2025-01-02 18:11 | disposition home or self-care (01) ==
LOC: ED 16:24 → MS3 18:28
PROVIDERS: Admitting Provider Surgery; Emergency Provider Emergency Medicine; Referring Provider Emergency Medicine; Visit Provider Surgery
PROC: (CPT 47610; principal; 2025-01-02 13:10)
DX: K80.00 Calculus of gallbladder with acute cholecystitis without obstruction (principal)
CPT/HCPCS: 47563; 00790; 36415; 74300; 76000; 76705; 80053; 81001; 83690; 85025; 88304; 93005; 96361; 96365; 96366; 96367; 96376; 99221; 99284; A4216; G0378; J0744; J2405